=== PATIENT | female | born 1995 | race Caucasian/White ===

== ENCOUNTER → 2016-12-18 | Outpatient (REF) | payer OTHER ==
[~2016-12-18] MED LIST: ATIV1TAB10 PO; LAMI1TAB7 PO; RISP2TAB30 PO; RISP3TAB18 PO; VITACHTA PO; ZOLO25TA PO
[2016-12-18 12:19] LABS: ALBUMIN 4.1 GM/DL (3.2-5.2); ALBUMIN/GLOBULIN RATIO 1.41 (1.00-1.93); ALKALINE PHOSPHATASE 70 U/L (45-117); ALT/SGPT 16 U/L (12-78); ANION GAP 8 MEQ/L (8-16); AST/SGOT 13 U/L (15-37); BILIRUBIN,TOTAL 0.4 MG/DL (0.2-1.0); BLOOD UREA NITROGEN 12 MG/DL (7-18); CALCIUM LEVEL 8.7 MG/DL (8.5-10.1); CARBON DIOXIDE LEVEL 28 MEQ/L (21-32); CHLORIDE LEVEL 105 MEQ/L (98-107); CHOLESTEROL LEVEL 215 MG/DL (<200); CREATININE FOR GFR 0.76 MG/DL (0.55-1.02); GLOMERULAR FILTRATION RATE > 60.0 (>60); GLUCOSE, FASTING 90 MG/DL (70-105); SODIUM LEVEL 141 MEQ/L (136-145); TRIGLYCERIDES LEVEL 118 MG/DL (<150)
== END ==
LOC: M SFHCCLAY 08:50
PROVIDERS: ATTEND Family Medicine
DX: E78.2 Mixed hyperlipidemia (principal)

== ENCOUNTER → 2017-02-21 | Outpatient (REF) | payer MEDICAID, OTHER | LOC: M LABDRAWC 16:25 → M LABNEURO 16:25 | PROVIDERS: ATTEND Physician Assistant Medical | DX: Z51.81 Encounter for therapeutic drug level monitoring (principal); Z79.899 Other long term (current) drug therapy; R55 Syncope and collapse ==

== ENCOUNTER → 2017-05-02 | Outpatient (REF) | payer OTHER, MEDICAID ==
[~2017-05-02] MED LIST changes: -RISP2TAB30 PO; +RISP2TAB32 PO; -RISP3TAB18 PO; +RISP3TAB20 PO
== END ==
LOC: M SFHCCLAY 11:37
PROVIDERS: ATTEND Nurse Practitioner Family
DX: L08.9 Local infection of the skin and subcutaneous tissue, unspecified (principal)

== ENCOUNTER → 2017-11-04 | Outpatient (REF) | payer OTHER, MEDICAID ==
[2017-11-08 00:06] LABS: LAMOTRIGINE (LAMICTAL) 5.8 ug/mL (2.0-20.0)
== END ==
LOC: M LABDRAWC 16:33
DX: G40.909 Epilepsy, unspecified, not intractable, without status epilepticus (principal)

== ENCOUNTER → 2018-09-02 | Outpatient (REF) | payer OTHER, MEDICAID ==
[2018-09-05 10:22] LABS: LAMOTRIGINE (LAMICTAL) 5.2 ug/mL (2.0-20.0)
== END ==
LOC: M LABDRAWC 16:09
DX: G40.909 Epilepsy, unspecified, not intractable, without status epilepticus (principal)
CPT/HCPCS: 80175

== ENCOUNTER → 2018-12-31 | Outpatient (REF) | payer OTHER ==
[2018-12-31 18:59] LABS: ALBUMIN 4.2 GM/DL (3.2-5.2); ALT/SGPT 21 U/L (12-78); BILIRUBIN,TOTAL 0.2 MG/DL (0.2-1.0); BLOOD UREA NITROGEN 12 MG/DL (7-18); CARBON DIOXIDE LEVEL 29 MEQ/L (21-32); CHLORIDE LEVEL 104 MEQ/L (98-107); CHOLESTEROL LEVEL 203 MG/DL (<200); CHOLESTEROL RISK RATIO 4.142 (<5); GLOMERULAR FILTRATION RATE > 60.0 (>60); GLUCOSE, FASTING 108 MG/DL (70-100); HDL CHOLESTEROL 49 MG/DL (>40); LDL CHOLESTEROL 113 MG/DL (<100); NON-HDL-C 154 MG/DL; POTASSIUM SERUM 4.1 MEQ/L (3.5-5.1); SODIUM LEVEL 139 MEQ/L (136-145); TOTAL PROTEIN 7.3 GM/DL (6.4-8.2); TRIGLYCERIDES LEVEL 205 MG/DL (<150)
== END ==
LOC: M SFHCCLAY 15:22
PROVIDERS: ATTEND Nurse Practitioner Family
DX: E78.2 Mixed hyperlipidemia (principal)

== ENCOUNTER 2019-08-29 12:49 | Observation (INO) | payer MEDICAID, OTHER ==
[~2019-08-29] VITALS: Ht 160 cm; Wt 58.3 kg
[2019-08-29] MEDS ORDERED: RISP1TAB3 PO (13:10)
[2019-08-29] MEDS ORDERED: IBUP-1114 PO (13:10)
[2019-08-29] MEDS ORDERED: LAMO100T PO (13:10)
[2019-08-29] MEDS ORDERED: MULT1CHW26 PO (15:17)
--- NOTE | 2019-08-29 15:28 | ED PDOC ---
Provider Note Psychiatric consult Note Chief Complaint: "I don't know" History of Present Illness: The patient a 23-year-old woman with a long history of autism and intellectual impairment presents with reported auditory hallucinations, the patient is met with she is a very poor historian as it appears that she is autistic with a low ability to verbalize emotions. She presents with her mother's friend, whom is helping to take care of her as her mother is in the hospital in [place], who will be returning tomorrow. The patient has been very stressed of the last few days with her mother gone, reporting saying "that D person", by report from her collateral sources from an individual that had stressed the patient out. The patient appears to be highly limited with some mental status changes but does not appear to demonstrate any psychotic thought processes. The interview is fairly simplistic as she is unable to tolerate much of an interview as she is fairly limited. Her mother is her current guardian and she has been reportedly connected with [facility] services. She has had intellectual testing demonstrated to place her with an IQ of 66. Review of Psychiatric Systems: Affective: denies any significant history of depressive symptoms Anxiety: reports being anxious one alone Trauma: denies any specific criterion a trauma Psychosis: reports being scared of the above named person Personality Screen: unable to screen Past Psychiatric History: Current Diagnoses: autism Current Outpatient: [facility] with Dr. Pugh Current Medication regiment: reported to be on risperidone and Lamictal, she is noncompliant with risperidone the last few days Past Psychiatric Admissions: one in 2013 Suicide Attempts: denies Past Family Psychiatric History: Reportedly has a mother with bipolar disorder Social History and Family of Origin: Lives with her mother, her autistic uncle and is currently being cared for by her biological mother. She has graduated from [employer]. Addiction History: Denies any substance use Medical Problems: Seizure history Mental Status Exam: Vitals: reviewed General: Well dressed with good hygiene Speech: answers questions Thought processes: coherent Thought content: Future orientated Abstract reasoning, and computation: Intact Description of associations: Intact Description of abnormal or psychotic thoughts:Denies any suicidal or homicidal ideation. Denies any auditory or visual hallucinations. Does not appear to be responding to internal stimuli. Judgment: chronically limited Insight: chronically limited Orientation: Alert and orientated 3 Recent and remote memory: Intact Attention span and concentration: Intact Fund of knowledge: limited Mood: "okay" Affect: Euthymic with a full range Assessment: 23-year-old woman with a history of intellectual disability and autism presents with mental status changes that are likely due to combination of stress and very poor frustration tolerance. She is been off of her risperidone likely due to her inability to care for herself at chronic baseline. Her mother is not present to give her medications however she will be returning tomorrow. The patient is not eligible for inpatient psychiatry due to IQ she would not tolerate the inpatient environment well and can be resumed on her medications as she is not suicidal or homicidal, her reported auditory hallucinations appear to be internal monologues in a very primitive mind, she does not appear to be responding to internal stimuli which would be suggestive of a psychotic thought process. Risperidone can be helpful for anxious individuals especially those with autism and behavioral problems. She would be unable to consent to an inpatient psychiatric admission as she has a guardian. Diagnostics by DSMV: Autism moderate intellectual disability Recommendations/Rational Medications: recommend restarting risperidone at 0.25 mg BID to see how patient tolerates as well is melatonin 3 mg for sleep. Recommend admission to medicine for observation due to her altered mental status, if she tolerates her medications she can be released to her mother tomorrow, as she is not able to care for herself due to her significant intellectual disability. Disposition: does not meet involuntary criteria due to the lack of suicidal and homicidal ideation, her symptoms are likely due to stress in an individual that has very poor frustration tolerance, she has no history of suicide attempts and is well connected to outpatient treatment. Her outpatient provider may need to consider a fdc, as her mother's health is more frail and she may not be able to continue to provide for the patient for a long period of time. She does not meet voluntary criteria as she is primarily suffering from an intellectual disability and autism, which are not treated on inpatient mental health units and in fact are not allowed under [place] State law. Safety: low risk for suicide or homicide Other:please call psychiatry back if there any questions or concerns, or if any safety issues arise. AMBER Joe DO Aug 29, 2019 15:28
[2019-08-29 17:13] LABS: BASO # 0.1 10^3/uL (0.0-0.2); BASO % 0.7 % (0.0-1.0); EOS % 0.4 % (0.0-3.0); HEMATOCRIT 44.9 % (36.0-47.0); HEMOGLOBIN 15.2 g/dl (12.0-15.5); LYMPH # 1.3 10^3/uL (1.5-5.0); LYMPH % 18.3 % (24.0-44.0); MEAN CORPUSCULAR HEMOGLOBIN 31.7 pg (27.0-33.0); MEAN CORPUSCULAR HGB CONC 33.9 g/dl (32.0-36.5); MEAN CORPUSCULAR VOLUME 93.7 fl (80.0-96.0); MONO # 0.4 10^3/uL (0.0-0.8); MONO % 6.2 % (0.0-5.0); NEUTROPHILS # 5.2 10^3/uL (1.5-8.5); NEUTROPHILS % 74.1 % (36.0-66.0); PLATELET COUNT, AUTOMATED 239 10^3/uL (150-450); RED BLOOD COUNT 4.79 10^6/uL (4.00-5.40); WHITE BLOOD COUNT 7.1 10^3/uL (4.0-10.0)
--- NOTE | 2019-08-29 17:25 | ECGEPIP ---
[facility] - ED Test Date: 2019-08-29 Pat Name: DANYEL VALLES Department: Room: - Gender: Female Real Estate Executive Assistant: PACHE[place] : 1995 Requested By: Rolua Dumas Order Number: [id number] Reading MD: Roula Dumas Measurements Intervals [place] Rate: 100 P: 63 MO: 141 QRS: 66 QRSD: 77 T: 59 QT: 307 QTc: 396 Interpretive Statements SINUS TACHYCARDIA ABNORMAL RHYTHM ECG No prior Electronically Signed on 08-29-2019 17:25:03 EST by Roula Dumas
[2019-08-29 17:43] LABS: OSMOLALITY SERUM 291 MOSM/KG (275-295)
[2019-08-29 17:49] LABS: ALBUMIN 4.4 GM/DL (3.2-5.2); ALT/SGPT 23 U/L (12-78); BILIRUBIN,DIRECT < 0.1 MG/DL (0.0-0.2); BILIRUBIN,TOTAL 0.4 MG/DL (0.2-1.0); BLOOD UREA NITROGEN 10 MG/DL (7-18); CALCIUM LEVEL 9.3 MG/DL (8.5-10.1); CARBON DIOXIDE LEVEL 28 MEQ/L (21-32); CHLORIDE LEVEL 106 MEQ/L (98-107); CK-MB VALUE MASS < 1.0 NG/ML (<3.6); CPK CREATINE PHOSPHOKINASE 64 U/L (26-192); CREATININE FOR GFR 0.71 MG/DL (0.55-1.30); GLOMERULAR FILTRATION RATE > 60.0 (>60); GLUCOSE, FASTING 114 MG/DL (70-100); MB/CK RELATIVE INDEX 1.56 (< OR =4); POTASSIUM SERUM 3.9 MEQ/L (3.5-5.1); SALICYLATE LEVEL < 1.7 MG/DL (5.0-30.0); SODIUM LEVEL 140 MEQ/L (136-145); THYROID STIMULATING HORMONE 0.968 uIU/ML (0.358-3.740); TOTAL PROTEIN 7.8 GM/DL (6.4-8.2); TROPONIN I < 0.02 NG/ML (< 0.10)
[2019-08-29 17:50] LABS: ACETAMINOPHEN LEVEL < 2.0 UG/ML (10.0-30.0); ETHYL ALCOHOL (ETHANOL) < 0.003 % (0.000-0.010)
--- NOTE | 2019-08-29 19:10 | HPEPDOC ---
[facility] Medical History & Physical Date of Admission Aug 29, 2019 Date of Service: Aug 29, 2019 Attending Physician: MIRIAM REESE MD History and Physical CHIEF COMPLAINT: Poor support / Housing situation HISTORY OF PRESENT ILLNESS: Most of the history was obtained via ED provider in record review, because patient is a 23-year-old, with a past medical history significant for mild mental retardation, autistic, and nonspecified psychiatric disorder. According to the ER provider, patient is usually under the care of grandmother, home. Patient refers to as mom. Grandmother was admitted to [facility] for DKA with discharge pending for tomorrow. In her absence. Grandmother recruited help of her friend to take care of the patient and brother who also has a history of autism. It appears that the level of care became too much for grandmother's friend, so grandmothers friend recruited patients biological mother to help take care of both patient and her brother. Grandmothers friend brought patient to the ED because of increased paranoia, and paranoid delusions, which she believes is attributed to biological mother was not administrated patient's medications appropriately. Patient was evaluated by psychiatrist Everton levine, in the ED, PFS was also consulted. After evaluation by psychiatrist, it was deemed that an admission to inpatient mental health was an not appropriate for patient, and she'll benefit from an overnight stay with restarting of her medications, with discharge tomorrow to custody of grandmother. Laboratories have been unremarkable, patient was tachycardic on presentation, this is attributed to her nervousness. Will place patient on observation overnight. PAST MEDICAL HISTORY: Autistic, mild mental edition, nonspecified psychiatric disorder PAST SURGICAL HISTORY: None SOCIAL HISTORY: Grandmother takes care of patient, ALLERGIES: Please see below. REVIEW OF SYSTEMS: Unable to obtain due to patient's lack of understanding -She did however, denied chest pain, and breathing difficulty. She denied abdominal pain, she denied any recent trauma. HOME MEDICATIONS: Please see below. PE VITALS: See Below GENERAL APPEARANCE: Alert no acute distress. Eaten a cheeseburger. happy and pleasant SKIN: Warm, well perfused ENT: Palate intact, goldstein tympanic membrane no bulging, no erythema, Neck supple, no thyromegaly THORAX: Symmetrical. LUNGS: Clear to auscultation bilaterally. HEART: Normal S1, S2. No murmurs, no rubs, no gallops ABDOMEN: Soft. No masses. Bowel sounds are present. EXTREMITIES: Moves all extremities equally. No gross deformities. PULSES: 2+ upper and lower extremity . NEURO: muscle strength 5/5, PSY: No paranoid delusion, no thoughts of suicide, patient is concerned about medical procedure being performed on her, no increase agitation. LABORATORY DATA: See below. IMAGING: none MICROBIOLOGY: Please see below. ASSESSMENT: Patient is a 23-year-old, with a past medical history significant for mild mental retardation, autistic, and nonspecific psychiatric disorder.Presenting with complaint of Increased paranoia, and paranoid delusions by care substitute childcare administrator. She was evaluated by psychiatrist in the ED, PFS as been consulted. Patient does not meet criteria for admission to inpatient mental health unit. She'll be kept overnight for observation. PLAN: #Unsafe living conditions - Patient is without a primary caregiver - No excessive paranoia delusion, no thoughts of suicide, - Will restart Risperdal 0.25 mg twice a day, along with melatonin. And monitor patient overnight. As per psychiatry please refer to his note for full details -PFS consult # Mild Mental Retardation / Autism -Will continue home medication, - will restart Risperdal, provide melatonin as a sleep aid as needed DVT prophylaxis - Will continue with early ambulation Vital Signs Vital Signs Date Time Temp Pulse Resp B/P (MAP) Pulse Ox O2 Delivery O2 Flow Rate FiO2 08/29/19 16:06 08/29/19 12:50 97.7 112 18 96 Room Air Laboratory Data Labs 24H Laboratory Tests 2 08/29/19 16:21: Immature Granulocyte % (Auto) 0.3, Neutrophils (%) (Auto) 74.1H, Lymphocytes (%) (Auto) 18.3L, Monocytes (%) (Auto) 6.2H, Eosinophils (%) (Auto) 0.4, Basophils (%) (Auto) 0.7, Neutrophils # (Auto) 5.2, Lymphocytes # (Auto) 1.3L, Monocytes # (Auto) 0.4, Eosinophils # (Auto) 0.0, Basophils # (Auto) 0.1, Nucleated Red Blood Cells % (auto) 0.0, Anion Gap 6L, Glomerular Filtration Rate > 60.0, Osmolality 291, Calcium Level 9.3, Total Bilirubin 0.4, Direct Bilirubin < 0.1, Aspartate Amino Transf (AST/SGOT) 16, Alanine Aminotransferase (ALT/SGPT) 23, Alkaline Phosphatase 62, Ammonia 15, Total Creatine Kinase 64, Creatine Kinase MB < 1.0, Creatine Kinase MB Relative Index 1.56, Troponin I < 0.02, Total Protein 7.8, Albumin 4.4, Albumin/Globulin Ratio 1.29, Thyroid Stimulating Hormone (TSH) 0.968, Salicylates Level < 1.7L, Acetaminophen Level < 2.0L, Ethyl Alcohol Level < 0.003 CBC/BMP Laboratory Tests 08/29/19 16:21 Home Medications Scheduled Lamotrigine (Lamotrigine) 100 Mg Tablet, 100 MG PO BID Multivit-Minerals/Folic Acid (Adult Multi Gummies) 200 Mcg Tab.chew, 2 CHW PO DAILY Scheduled PRN Ibuprofen (Ibuprofen) 400 Mg Tablet, 400 MG PO BID PRN for CRAMPS Allergies Coded Allergies: No Known Allergies (Unverified , 09/10/14) GME ATTESTATION GME ATTESTATION My faculty preceptor for this patient encounter was physically present during the encounter and was fully available. All aspects of the patient interview, examination, medical decision making process, and medical care plan development were reviewed and approved by the faculty preceptor. The faculty preceptor is aware and concurs with the plan as stated in the body of this note and will attest to such by his/her cosignature. ATTENDING NOTE I, Miriam Reese, have independently examined this patient and performed my own physical exam, as well as reviewed the documentation and edited where necessary. I have discussed in detail with the resident / student the findings and plan of treatment as documented by the resident / student and edited their note. I agree with their findings and treatment plan and have edited their documentation. I will continue to follow the patient during this hospital stay. KATIE VERNON DO Aug 29, 2019 19:10 MIRIAM REESE MD Aug 29, 2019 20:48
[2019-08-29 20:10] VITALS: BP 143/80
[2019-08-29] MEDS: lamoTRIgine 100MG TAB PO SCH (20:16)
[2019-08-29] MEDS: ACETAMINOPHEN TAB 650MG DOSE (2X325MG) PO PRN (20:17)
[2019-08-29] MEDS ORDERED: RAMELTEON 8 MG TAB (ROZEREM) PO SCH (21:00)
[2019-08-29] MEDS: risperiDONE 1 MG/1 ML SOLN ORAL SYRINGE PO SCH (21:07)
[2019-08-30] MEDS: ACETAMINOPHEN TAB 650MG DOSE (2X325MG) PO PRN (04:19)
[2019-08-30 06:00] VITALS: BP 135/82
[2019-08-30] MEDS: lamoTRIgine 100MG TAB PO SCH (07:34)
[2019-08-30] MEDS: risperiDONE 1 MG/1 ML SOLN ORAL SYRINGE PO SCH (07:35)
[2019-08-30] MEDS ORDERED: RISP1SS PO (10:46)
[2019-08-30] MEDS ORDERED: RISP0.253 PO (11:37)
--- NOTE | 2019-08-30 11:45 | DS.PDOC ---
Discharge Summary General Date of Admission Aug 29, 2019 at 12:50 Date of Discharge 08/30/2019 Discharge Summary PROCEDURES PERFORMED DURING STAY: [None]. ADMITTING DIAGNOSES / DISCHARGE DIAGNOSES: Unsafe living situation - patient was alone and depends on manager of care that has been hospitalized Cognitive impairment Autism DVT prophylaxis COMPLICATIONS/CHIEF COMPLAINT: No pump mechanic / suspected hallucinations HISTORY OF PRESENT ILLNESS / HOSPITAL COURSE: Patient is a 22-year-old female with past medical history of mild mental retardation, autism, possible hallucination history who presented to the ER after her care provider was hospitalized. Currently patient has had some episodes of hallucinations and psychiatry has evaluated the patient and provided recommendations for her care. Her care provider was unable to take her back home and patient was subsequently placed on observation at [facility]. Patient has been continued with her home medications and Risperidone was added to her regimen. Patient has had an uneventful evening and will be discharged back to the care of Ms. Aurea Duff (Grandmother / Home health care social worker). DISCHARGE MEDICATIONS: Please see below. ALLERGIES: Please see below. PHYSICAL EXAMINATION ON DISCHARGE: Vitals (See below) General: Lying in bed, no acute distress, comfortable, Awake / Alert HEENT: NC, AT CVS: RRR, +S1S2 Lungs: Fair air entry b/l, -w/r/r Abdomen: Soft, ND, NT Extremities: - Edema, - Calf tenderness LABORATORY DATA: Please see below. ACTIVITY: [As tolerated]. DISCHARGE PLAN: Follow up with Psychiatry within 7 days Remain compliant with treatment plan and medications Return to the ER if you experience any problems DISPOSITION: Home DISCHARGE CONDITION: [Stable]. TIME SPENT ON DISCHARGE: 25 minutes Vital Signs/I&Os Vital Signs Date Time Temp Pulse Resp B/P (MAP) Pulse Ox O2 Delivery O2 Flow Rate FiO2 08/30/19 06:00 98.6 99 18 135/82 (99) 97 Room Air I&O- Last 24 Hours up to 6 AM 08/30/19 06:00 Intake Total 240 ml Output Total 100 ml Balance 140 ml Laboratory Data Labs 24H Laboratory Tests 2 08/29/19 16:21: Immature Granulocyte % (Auto) 0.3, Neutrophils (%) (Auto) 74.1H, Lymphocytes (%) (Auto) 18.3L, Monocytes (%) (Auto) 6.2H, Eosinophils (%) (Auto) 0.4, Basophils (%) (Auto) 0.7, Neutrophils # (Auto) 5.2, Lymphocytes # (Auto) 1.3L, Monocytes # (Auto) 0.4, Eosinophils # (Auto) 0.0, Basophils # (Auto) 0.1, Nucleated Red Blood Cells % (auto) 0.0, Anion Gap 6L, Glomerular Filtration Rate > 60.0, Osmolality 291, Calcium Level 9.3, Total Bilirubin 0.4, Direct Bilirubin < 0.1, Aspartate Amino Transf (AST/SGOT) 16, Alanine Aminotransferase (ALT/SGPT) 23, Alkaline Phosphatase 62, Ammonia 15, Total Creatine Kinase 64, Creatine Kinase MB < 1.0, Creatine Kinase MB Relative Index 1.56, Troponin I < 0.02, Total Protein 7.8, Albumin 4.4, Albumin/Globulin Ratio 1.29, Thyroid Stimulating Hormone (TSH) 0.968, Salicylates Level < 1.7L, Acetaminophen Level < 2.0L, Ethyl Alcohol Level < 0.003 CBC/BMP Laboratory Tests 08/29/19 16:21 Discharge Medications Scheduled Lamotrigine (Lamotrigine) 100 Mg Tablet, 100 MG PO BID, (Reported) Multivit-Minerals/Folic Acid (Adult Multi Gummies) 200 Mcg Tab.chew, 2 CHW PO DAILY, (Reported) Risperidone (Risperidone) 0.25 Mg Tablet, 1 TAB PO BID Scheduled PRN Ibuprofen (Ibuprofen) 400 Mg Tablet, 400 MG PO BID PRN for CRAMPS, (Reported) Allergies Coded Allergies: No Known Allergies (Unverified , 09/10/14) ABNER ABBASI MD Aug 30, 2019 11:45
[2019-08-30 14:00] VITALS: BP 144/87
[2019-08-31] MEDS ORDERED: RISP0.253 PO (15:01)
== END 2019-08-30 15:25 | disposition home or self-care (01) ==
LOC: M ED 12:49 → M ED INP 12:50 → M MS5PR 20:00
PROVIDERS: ADMIT Internal Medicine; ATTEND Internal Medicine
DX: Z60.2 Problems related to living alone (principal); G31.84 Mild cognitive impairment of uncertain or unknown etiology; F84.0 Autistic disorder; F70 Mild intellectual disabilities; R44.0 Auditory hallucinations; Z79.899 Other long term (current) drug therapy
CPT/HCPCS: 80048; 80076; 82140; 82550; 82553; 83930; 84443; 85025; 93005; 99285; G0480

== ENCOUNTER 2019-08-31 12:01 | Inpatient (IN) | payer MEDICAID, OTHER ==
[~2019-08-31] VITALS: Ht 160 cm; Wt 59.3 kg
[~2019-08-31 12:01] MED LIST changes: +IBUP-1114 PO; +LAMO100T PO; +MULT1CHW26 PO; +RISP0.253 PO; +RISP1SS PO; +RISP1TAB3 PO
[2019-08-31] MEDS ORDERED: MOM 30ML SUSPENSION UDC PO PRN (14:45)
[2019-08-31] MEDS ORDERED: ACETAMINOPHEN TAB 650MG DOSE (2X325MG) PO PRN (14:45)
[2019-08-31] MEDS ORDERED: MAALOX 30 ML SUSP *UDC PO PRN (14:45)
[2019-08-31] MEDS ORDERED: RISP0.253 PO (15:01)
[2019-08-31 16:39] LABS: HEMATOCRIT 44.1 % (36.0-47.0); HEMOGLOBIN 15.1 g/dl (12.0-15.5); MEAN CORPUSCULAR HEMOGLOBIN 32.5 pg (27.0-33.0); MEAN CORPUSCULAR HGB CONC 34.2 g/dl (32.0-36.5); PLATELET COUNT, AUTOMATED 245 10^3/uL (150-450); RED BLOOD COUNT 4.64 10^6/uL (4.00-5.40); WHITE BLOOD COUNT 7.1 10^3/uL (4.0-10.0)
[2019-08-31 16:47] LABS: HCG, SERUM QUALITATIVE NEGATIVE (NEGATIVE)
[2019-08-31 16:49] LABS: ACETAMINOPHEN LEVEL < 2.0 UG/ML (10.0-30.0); ALBUMIN 4.5 GM/DL (3.2-5.2); ALT/SGPT 23 U/L (12-78); BILIRUBIN,DIRECT 0.1 MG/DL (0.0-0.2); BILIRUBIN,TOTAL 0.4 MG/DL (0.2-1.0); BLOOD UREA NITROGEN 9 MG/DL (7-18); CALCIUM LEVEL 9.7 MG/DL (8.5-10.1); CARBON DIOXIDE LEVEL 26 MEQ/L (21-32); CHLORIDE LEVEL 108 MEQ/L (98-107); CREATININE FOR GFR 0.75 MG/DL (0.55-1.30); ETHYL ALCOHOL (ETHANOL) < 0.003 % (0.000-0.010); GLOMERULAR FILTRATION RATE > 60.0 (>60); GLUCOSE, FASTING 100 MG/DL (70-100); SALICYLATE LEVEL 1.7 MG/DL (5.0-30.0); SODIUM LEVEL 141 MEQ/L (136-145); THYROID STIMULATING HORMONE 0.551 uIU/ML (0.358-3.740)
[2019-08-31 19:00] VITALS: BP 136/87
[2019-08-31] MEDS ORDERED: OLANZapine ORAL DISINTEGRATING TAB 5MG PO ONE (20:45)
[2019-09-01 06:18] VITALS: BP 134/82
--- NOTE | 2019-09-01 11:45 | MHHPEPDOC ---
General Date Of Admission: Aug 31, 2019 Legal Status: 9.39 Chief Complaint "I'm ok". History of Present Illness HISTORY OF THE PRESENT ILLNESS: Patient is a 23 -year-old , female, with a history of austism, intellectual disability, leaning disabilities, and low functioning status who was brought to ED by [facility] for pt having hallucinations. Pt was in hospital over the weekend (08/29) and seen by Dr. Samuel who recommended social admit for inability to care for self to medical floor where she was discharged the following day. Pt is an outpatient of Dr. Pugh's who told [facility] staff that pt's grandmother (primary cable former) is currently in the hospital for medical illness and the person that is supposed to be caring for the pt while grandmother away is unable to properly care for her causing pt to decompensate and reportedly leave her home unsupervised and enter other people's property. In ED, pt in ED very focused on name "Yaneth" who she states is always with her and never leaves her side and "the D person" or Patel that is a voice of someone she doesn't like. She denies SI/HI in the ED. Per D/C data processing systems project planner, "Yaneth" and "the Patel person" are longstanding symptoms. Pt is a very poor historian and history gathered from chart record. Psychiatric Review of Systems Neris (4 or more days of): denies Psychosis: delusions ("Yaneth" and "the D person" that are long standing and not new) PTSD: denies Anxiety: stressor related anxiety Past Psychiatric History Current Diagnoses: autism Current Outpatient: [facility] with Dr. Pugh Current Medication regiment: reported to be on risperidone and Lamictal, she is noncompliant with risperidone per chart review 08/29/[address] Samuel Past Psychiatric Admissions: one in 2013 Suicide Attempts: denies Past Medical History Medical Problems denies Head Injury: No Seizures: Yes (history of) Hospitalizations: No Surgeries: No Family Medical/Psychiatric HX Medical Problems noncontributory Psychiatric Disorders: Yes (Reportedly has a mother with bipolar disorder, brother and maternal uncle are autistic) Addiction: No Suicide Attemps/Completions: No Addiction History denies Social History Childhood: born and raised in [place] by her maternal grandmother, 1 brother with autism too, good childhood Abuse/Trauma:denies Current Living Situation: currently lives with her maternal grandmother and autistic uncle in [place], grandmother has custody of pt but is currently in the hospital for medical problem Education: [employer] r[employer] Employment: diabled Social Support: grandmother, mother Legal: denies Marital: single, never , no kids Mental Status Examination General Appearance: well groomed, appears stated age, hospital scubs/clothing Demeanor: very figety, other (childlike) Eye Contact: average Activity: anxious, other (childlike) Behavior: cooperative, restless Speech: clear, reg/rate,rhythm,volume, non-spontaneous Mood: euthymic Mood "happy" Affect: full Thought Process: concrete Thought Content (Delusions): denies SI, HI, AVH (voice of "the D person" she doesn't like, "I hear Yaneth's voice I want to be with her she's my friend."), delusions ("Yaneth", " she's always with me and is my friend") Thought Content (Other): autistic Thought Content (Aggressive): none reported Perception (Hallucinations): none reported Perception (Other): none reported Cognition (Impairment of): memory, attention/concentration, ability to abstract Cognition(Intelligence Est.): MR Oriented: Awake, Alert, Oriented times three Insight: poor (very) Judgment: Poor (very) Psychosis: Abstract Thinking Diagnoses R/O Delusional d/o Intellectual disability - moderate/severe Autistic Spectrum D/O - low functioning A-FIB/CHADSVASC A-FIB History Current/History of A-Fib/PAF?: No Assessment Pt seen and states she came b/c she wanted to be with "Yaneth" b/c she hears her voice and "want to be with her". States she happy and "Yaneth is her friend." Denies SI/HI. Feels safe here. Per staff pt got into male pt's bed last night and had to be redirected out. Told pt that she can't enter other people's rooms and that the only room she can enter is hers and had her repeat that back to me. Pt appears to have very poor insight and judgment and is not able to care for herself, keep herself safe with supervision. Pt is also noncompliant on her medications which is apparently worsening her symptoms of delusions with AH that are long standing. Will increase risperidone to 1mg bid and vistaril 25mg q6hr prn anxiety, and continue lamictal 100mg daily. Pt is a very poor historian and history gathered from chart record. Initial Treatment Plan 1. Patient was admitted on a 9.39 status. 2. Complete history was obtained. 3. With patients permission, family will be contacted and database will be expanded. 4. Patients medication regimen will be reviewed and changed accordingly. 5. Patient will be provided with protected environment. 6. Patient will be treated with individual, group, and milieu therapies. 7. Patient will receive supportive psych-education. 8. Discharge planning will commence immediately. 9. Outpatient follow-up treatment will be strongly recommended. 10. The initial treatment plan will focus initially on: * Depression. * Risk for suicide. 11. increase risperidone to 1mg bid and start vistaril 25mg q6hr prn anxiety, and continue lamictal 100mg daily. ESTIMATED LENGTH OF STAY: 5-7 DAYS. TIME SPENT COUNSELING AND COORDINATING INITIAL CARE:60 minutes. Vital Signs Vital Signs Date Time Temp Pulse Resp B/P (MAP) Pulse Ox O2 Delivery O2 Flow Rate FiO2 09/01/19 06:18 98.0 111 14 134/82 (99) Room Air 08/31/19 19:00 98 Laboratory Data 24H Labs Laboratory Tests 2 08/31/19 16:03: Nucleated Red Blood Cells % (auto) 0.0, Anion Gap 7L, Glomerular Filtration Rate > 60.0, Calcium Level 9.7, Total Bilirubin 0.4, Direct Bilirubin 0.1, Aspartate Amino Transf (AST/SGOT) 16, Alanine Aminotransferase (ALT/SGPT) 23, Alkaline Phosphatase 64, Total Protein 8.0, Albumin 4.5, Albumin/Globulin Ratio 1.29, Thyroid Stimulating Hormone (TSH) 0.551, Human Chorionic Gonadotropin, Qual NEGATIVE, Salicylates Level 1.7L, Acetaminophen Level < 2.0L, Ethyl Alcohol Level < 0.003 CBC/BMP Laboratory Tests 08/31/19 16:03 Medications Scheduled Guanfacine HCl (Guanfacine HCl) 1 Mg Tablet, 1 MG PO BID for autism Multivit-Minerals/Folic Acid (Adult Multi Gummies) 200 Mcg Tab.chew, 2 CHW PO DAILY, (Reported) Paliperidone Palmitate (Invega Sustenna) 156 Mg/1 Ml Syringe, 156 MG IM QMONTH for delusional d/o Scheduled PRN Hydroxyzine HCl (Hydroxyzine HCl) 25 Mg Tablet, 25 MG PO Q6HP PRN for ANXIETY Ibuprofen (Ibuprofen) 400 Mg Tablet, 400 MG PO BID PRN for CRAMPS, (Reported) Allergies Coded Allergies: No Known Allergies (Unverified , 09/10/14) SIMON SHEIKH DO Sep 01, 2019 11:45
[2019-09-01] MEDS ORDERED: lamoTRIgine 100MG TAB PO ONE (12:00)
[2019-09-01] MEDS ORDERED: risperiDONE 1 MG TAB PO ONE (12:15)
--- NOTE | 2019-09-01 12:41 | HPEPDOC ---
General Date of Admission Aug 31, 2019 at 14:42 Date of Service: Sep 01, 2019 Chief Complaint The patient is a 23-year-old female admitted with a reason for visit of Unspecified Psychotic Disorder. Source: RN/, Old records (medical records), Other Exam Limitations: Mild cognitive slowing History of Present Illness This is a 22 years old female with past medical history of AUTISTIC mild mental slowing, nonspecific psychiatric disorder, was admitted to inpatient mental health unit with chief complaints of hallucinations which are auditory in cheryl ure. Patient is a poor historian. History was obtained from M.D. notes patient's previous admission notes and medical records. Home Medications Scheduled Lamotrigine (Lamotrigine) 100 Mg Tablet, 100 MG PO BID, (Reported) Multivit-Minerals/Folic Acid (Adult Multi Gummies) 200 Mcg Tab.chew, 2 CHW PO DAILY, (Reported) Risperidone (Risperidone) 0.25 Mg Tablet, 0.25 MG PO BID, (Reported) Scheduled PRN Ibuprofen (Ibuprofen) 400 Mg Tablet, 400 MG PO BID PRN for CRAMPS, (Reported) Allergies Coded Allergies: No Known Allergies (Unverified , 09/10/14) Past Medical History Medical History Autism. Mild mental retardation none specific psychiatric disorder Surgical History None Social History * Smoker: Denies Alcohol: Denies Drugs: denies A-FIB/CHADSVASC A-FIB History Current/History of A-Fib/PAF?: No Review of Systems Constitutional: Denies: Chills, Fever, Malaise, Night Sweats, Weakness, Fatigue, Weight Loss, Lethargy, Other Eyes: Denies: Pain, Vision change, Conjunctivae inflammation, Eyelid inflammation, Redness, Other ENT: Denies: Head Aches, Ear Pain, Dysphagia, Sinus Congestion, Post Nasal Drip, Sore Throat, Epistaxis, Other Symptoms Skin: Denies: Rash, Lesions, Jaundice, Bruising, Itching, Dry, Breakdown, Nail Changes, Other Pulmonary: Denies: Dyspnea, Cough, Pleuritic Chest Pain, Other Symptoms Cardiovascular: Denies: Chest Pain, Palpitations, Orthopnea, Paroxysmal Noc. Dyspnea, Edema, Lt Headedness, Other Symptoms Gastrointestinal: Denies: Nausea, Vomiting, Abdominal Pain, Diarrhea, Constipation, Melena, Hematochezia, Other Symptoms Genitourinary: Denies: Dysuria, Frequency, Incontinence, Hematuria, Retention, Other Symptoms Musculoskeletal: Denies: Neck Pain, Back Pain, Shoulder Pain, Arm Pain, Hand Pain, Leg Pain, Foot Pain, Joint Pain, Muscle Pain, Spasms, Other Symptoms Neurological: Denies: Weakness, Numbness, Incoordination, Change in speech, Confusion, Seizures, Other Symptoms Psych: Reports: Other Psych Physical Examination General Exam: Positive: Alert Eye Exam: Positive: PERRLA, Conjunctiva & lids normal ENT Exam: Positive: Atraumatic, Mucous membr. moist/pink Neck Exam: Positive: Supple Chest Exam: Positive: Clear to auscultation, Normal air movement Heart Exam: Positive: Rate Normal, Normal S1, Normal S2 Abdomen Exam: Positive: Normal bowel sounds Extremity Exam: Positive: Normal pulses Skin Exam: Positive: Nl turgor and temperature Neuro Exam: Positive: Strength at 5/5 X4 ext, Sensation Intact Vital Signs Vital Signs Date Time Temp Pulse Resp B/P (MAP) Pulse Ox O2 Delivery O2 Flow Rate FiO2 09/01/19 06:18 98.0 111 14 134/82 (99) Room Air 08/31/19 19:00 98 Laboratory Data Labs 24H Laboratory Tests 2 08/31/19 16:03: Nucleated Red Blood Cells % (auto) 0.0, Anion Gap 7L, Glomerular Filtration Rate > 60.0, Calcium Level 9.7, Total Bilirubin 0.4, Direct Bilirubin 0.1, Aspartate Amino Transf (AST/SGOT) 16, Alanine Aminotransferase (ALT/SGPT) 23, Alkaline Phosphatase 64, Total Protein 8.0, Albumin 4.5, Albumin/Globulin Ratio 1.29, Thyroid Stimulating Hormone (TSH) 0.551, Human Chorionic Gonadotropin, Qual NEGATIVE, Salicylates Level 1.7L, Acetaminophen Level < 2.0L, Ethyl Alcohol Level < 0.003 CBC/BMP Laboratory Tests 08/31/19 16:03 Problems (1) Hallucinations Status: Acute Problem Text: Patient was admitted to inpatient mental health unit Seen by Dr. Leggett today Patient will participate in individual and group therapies Medication and discharge planning as per Dr. Leggett (2) Living accommodation issues Status: Acute Problem Text: Patient lives with her grandmother and the decision support analyst Pt's grandmother is admitted in the hospital and decision support analyst is unable to take care of her alone. Patient admitted to inpatient mental health unit for safe accommodation No medical workup needed at this time Plan / VTE VTE Prophylaxis Ordered?: No VTE Exclusion Mechanical Proph: Low Risk for VTE VTE Exclusion Pharmacological: At Low Risk for VTE ANNE HUNT MD Sep 01, 2019 12:41
[2019-09-01] MEDS: hydrOXYzine 25 MG TAB PO PRN (14:56)
[2019-09-01] MEDS: OLANZapine ORAL DISINTEGRATING TAB 5MG PO PRN ×2 (14:57→23:10)
[2019-09-01 16:09] VITALS: BP 127/78
[2019-09-01] MEDS ORDERED: risperiDONE 0.5 MG TAB PO SCH (21:00)
[2019-09-01] MEDS: risperiDONE 1 MG TAB PO SCH (21:13)
--- NOTE | 2019-09-01 22:32 | HPE ---
DATE OF ADMISSION: 08/31/2019 DATE OF SERVICE: 09/01/2019 HISTORY OF PRESENTING ILLNESS: This is a 23-year-old female admitted to the inpatient mental health unit for psychotic disorder. Hospitalist was asked to do a medical evaluation. Patient does have a prior history of autistic disorder, nonspecified psychotic disorder, mild mental retardation, usually lives at home with her mother and grandmother; she refers to as mom. Has no complaints of changes in weight, fever, chills, unusual rash, chest pain, pressure, tightness, shortness of breath, lightheadedness, dizziness, nausea, vomiting, diarrhea, abdominal pain, constipation. Denies dysuria, urgency, frequency, upper, lower extremity weakness, headache, changes in vision, rhinorrhea, cough, ear pain or discharge. Admitted to inpatient mental health unit for unspecified psychotic disorder. PAST MEDICAL HISTORY: Autism. Unspecified psychotic disorder. Mild mental retardation. PAST SURGICAL HISTORY: None. REVIEW OF SYSTEMS: Could not be obtained as the patient is autistic. SOCIAL HISTORY: Grandmother takes care of the patient, refers to her as mother. ALLERGIES: No known drug allergies. HOSPITAL MEDICATIONS: - lamotrigine - Risperdal - Zyprexa - Atarax - acetaminophen - Milk of Magnesia - Mylanta FAMILY HISTORY: Could not be obtained. PHYSICAL EXAM: Temperature 98, pulse 84, respiratory rate 18, blood pressure 127/78, 98% on room air. Generally, awake, alert, oriented to herself. She is not appropriate with her exam. Normocephalic, atraumatic. Extraocular muscles are intact. No cervical lymphadenopathy/thyromegaly. Lungs are clear to auscultation. No wheezing, rales or rhonchi. Heart: S1, S2, sinus rhythm. Abdomen is soft, nontender, nondistended. Extremities: No pitting edema. LABORATORY DATA: 08/31/2019 CBC: White count 7, hemoglobin 15, hematocrit 44, platelet count 245. Sodium 141, potassium 4, chloride 108, bicarbonate 26, BUN 9, creatinine 0.75, glucose 100, total bilirubin 0.4, direct bilirubin 0.1, AST 16, ALT 23, alkaline phosphatase 64, albumin 4.5, TSH 0.5. HCG negative. IMAGING STUDIES: None. ASSESSMENT AND PLAN: A 23-year-old with mental retardation, mild autism, unspecified psychotic disorder, admitted to inpatient psychiatric unit for unspecified psychotic disorder. IMPRESSION: 1. Unspecified psychotic disorder, managed by psychiatrist. 2. Mild autism, complicating care. 3. History of mental retardation, cared for by her grandmother whom she refers to as mother. No acute medical issues. ABELINOD
[2019-09-01] MEDS ORDERED: QUEtiapine FUMARATE 50 MG TAB PO ONE (23:30)
[2019-09-02 06:18] VITALS: BP 130/84
[2019-09-02] MEDS: risperiDONE 1 MG TAB PO SCH (08:44)
[2019-09-02] MEDS ORDERED: lamoTRIgine 100MG TAB PO SCH (09:00)
[2019-09-02] MEDS ORDERED: guanFACINE 1 MG TAB PO ONE (09:15)
--- NOTE | 2019-09-02 09:15 | MHIPNPDOC ---
[facility] Progress Note Progress Note DATE OF SERVICE: 09/02/19 HISTORY:Patient is a 23 -year-old , female, with a history of austism, intellectual disability, leaning disabilities, and low functioning status who was brought to ED by [facility] for pt having hallucinations. Pt was in hospital over the weekend (08/29) and seen by Dr. Samuel who recommended social admit for inability to care for self to medical floor where she was discharged the following day. Pt is an outpatient of Dr. Pugh's who told [facility] staff that pt's grandmother (primary psychological examiner) is currently in the hospital for medical illness and the person that is supposed to be caring for the pt while grandmother away is unable to properly care for her causing pt to decompensate and reportedly leave her home unsupervised and enter other people's property. In ED, pt in ED very focused on name "Yaneth" who she states is always with her and never leaves her side and "the D person" or Patel that is a voice of someone she doesn't like. She denies SI/HI in the ED. Per D/C network planner, "Yaneth" and "the Patel person" are longstanding symptoms. Pt seen and states she came b/c she wanted to be with "Yaneth" b/c she hears her voice and "want to be with her". States she happy and "Yaneth is her friend." Denies SI/HI. Feels safe here. Per staff pt got into male pt's bed last night and had to be redirected out. Told pt that she can't enter other people's rooms and that the only room she can enter is hers and had her repeat that back to me. Pt appears to have very poor insight and judgment and is not able to care for herself, keep herself safe with supervision. Pt is also noncompliant on her medications which is apparently worsening her symptoms of delusions with AH that are long standing. Will increase risperidone to 1mg bid and vistaril 25mg q6hr prn anxiety, and continue lamictal 100mg daily. Pt is a very poor historian and history gathered from chart record. VITAL SIGNS: See below. NEW TEST RESULTS: See below. CURRENT MEDICATIONS: See below. MENTAL STATUS EXAMINATION: General Appearance: well groomed, appears stated age, hospital scubs/clothing Demeanor: very figety, other (childlike) Eye Contact: average Activity: anxious, other (childlike) Behavior: cooperative, restless Speech: clear, reg/rate,rhythm,volume, non-spontaneous Mood: euthymic Mood "happy" Affect: full Thought Process: concrete Thought Content (Delusions): denies SI, HI, AVH (voice of "the D person" she doesn't like, "I hear Yaneth's voice I want to be with her she's my friend."), delusions ("Yaneth", " she's always with me and is my friend") Thought Content (Other): autistic Thought Content (Aggressive): none reported Perception (Hallucinations): none reported Perception (Other): none reported Cognition (Impairment of): memory, attention/concentration, ability to abstract Cognition(Intelligence Est.): MR Oriented: Awake, Alert, Oriented times three Insight: poor (very) Judgment: Poor (very) Psychosis: Abstract Thinking DIAGNOSES: R/O Delusional d/o Intellectual disability - moderate/severe Autistic Spectrum D/O - low functioning ASSESSMENT:Pt seen in her room and states she's "ok." Pt's memory is very poor and unable to remember who I am when I asked her, called me "Yaz." Asked pt if she remembered to one rule I told her she must follow here I told her yesterday as she continues to have to be redirected out of other pt's rooms and stated "I can only be in the rooms" and reminded her "this room, your room" specifically. Pt then asked me to tell "Yaneth" the rule. Pt requires constant redirection out of peoples rooms by staff. Pt is very low functioning. Per staff, pt discussing person "Yoli" who is real and works in an ice cream shop in [place]. Pt has very poor boundaries. MANAGEMENT PLAN: D/c risperidone and start invega 3mg qhs for pt to receive invega sustenna for noncompliance. D/c lamictal as due to life threatening side effects (SJS) due to noncompliance is too much of a risk for pt to be on considering her history of noncompliance. Start Guanfacine 1mg bid for Autism invega 3mg qhs Guanfacine 1mg bid vistaril 25mg q6hr prn anxiety TIME SPENT: 30 minutes. Vital Signs Vital Signs Date Time Temp Pulse Resp B/P (MAP) Pulse Ox O2 Delivery O2 Flow Rate FiO2 09/02/19 06:18 99.4 99 16 130/84 (99) 09/01/19 06:18 Room Air 08/31/19 19:00 98 Current Medications Current Medications Medications (Trade) Dose Ordered Sig/Aliya Route PRN Reason Start Time Stop Time Status Last Admin Dose Admin Acetaminophen (Tylenol Tab) 650 mg Q6HP PRN PO HEADACHE or DISCOMFORT 08/31/19 14:45 Al Hydrox/Mg Hydrox/Simethicone (Mylanta) 30 ml Q4HP PRN PO HEARTBURN/INDIGESTION 08/31/19 14:45 Home Med (Med Rec Complete!) ASDIRECTED XX 08/31/19 15:15 08/31/19 15:03 DC Hydroxyzine HCl (Atarax) 25 mg Q6HP PRN PO ANXIETY 09/01/19 11:45 09/01/19 14:56 Lamotrigine (LaMICtal) 100 mg DAILY PO 09/02/19 09:00 09/02/19 08:44 Magnesium Hydroxide (Milk Of Magnesia) 30 ml DAILYPRN PRN PO CONSTIPATION 08/31/19 14:45 Olanzapine (ZyPREXA ZYDIS) 5 mg Q4HP PRN PO ANXIETY/AGITATION 09/01/19 15:00 09/01/19 23:10 Risperidone (RisperDAL) 0.5 mg QHS PO 09/01/19 21:00 Cancel Risperidone (RisperDAL) 1 mg BID PO 09/01/19 21:00 09/02/19 08:44 Allergies Coded Allergies: No Known Allergies (Unverified , 09/10/14) SIMON SHEIKH DO Sep 02, 2019 9:15 am
[2019-09-02] MEDS: guanFACINE 1 MG TAB PO SCH ×2 (10:12→20:44)
[2019-09-02] MEDS: OLANZapine ORAL DISINTEGRATING TAB 5MG PO PRN (11:03)
[2019-09-02] MEDS: hydrOXYzine 25 MG TAB PO PRN ×2 (11:52→20:40)
[2019-09-02 16:23] VITALS: BP 105/59
[2019-09-02] MEDS: PALIPERIDONE 3 MG ER TAB (INVEGA) PO SCH (20:39)
[2019-09-03 06:10] VITALS: BP 116/70
--- NOTE | 2019-09-03 08:48 | MHIPNPDOC ---
[facility] Progress Note Progress Note DATE OF SERVICE: 09/03/19 HISTORY: Patient is a 23 -year-old , female, with a history of austism, intellectual disability, leaning disabilities, and low functioning status who was brought to ED by [facility] for pt having hallucinations. Pt was in hospital over the weekend (08/29) and seen by Dr. Samuel who recommended social admit for inability to care for self to medical floor where she was discharged the following day. Pt is an outpatient of Dr. Pugh's who told [facility] staff that pt's grandmother (primary motel keeper) is currently in the hospital for medical illness and the person that is supposed to be caring for the pt while grandmother away is unable to properly care for her causing pt to decompensate and reportedly leave her home unsupervised and enter other people's property. In ED, pt in ED very focused on name "Yaneth" who she states is always with her and never leaves her side and "the D person" or Patel that is a voice of someone she doesn't like. She denies SI/HI in the ED. Per D/C urban planner, "Yaneth" and "the Patel person" are longstanding symptoms. Pt seen and states she came b/c she wanted to be with "Yaneth" b/c she hears her voice and "want to be with her". States she happy and "Yaneth is her friend." Denies SI/HI. Feels safe here. Per staff pt got into male pt's bed last night and had to be redirected out. Told pt that she can't enter other people's rooms and that the only room she can enter is hers and had her repeat that back to me. Pt appears to have very poor insight and judgment and is not able to care for herself, keep herself safe with supervision. Pt is also noncompliant on her medications which is apparently worsening her symptoms of delusions with AH that are long standing. Will increase risperidone to 1mg bid and vistaril 25mg q6hr prn anxiety, and continue lamictal 100mg daily. Pt is a very poor historian and history gathered from chart record. VITAL SIGNS: See below. NEW TEST RESULTS: See below. CURRENT MEDICATIONS: See below. MENTAL STATUS EXAMINATION: Roughly no change General Appearance: well groomed, appears stated age, hospital scrubs/clothing Demeanor: very figety, other (childlike) Eye Contact: average Activity: anxious, other (childlike) Behavior: cooperative, restless Speech: clear, reg/rate,rhythm,volume, non-spontaneous Mood: euthymic Mood "ok" Affect: full Thought Process: concrete Thought Content (Delusions): denies SI, HI, AVH (voice of "the D person" she doesn't like, "I hear Yaneth's voice I want to be with her she's my friend."), delusions ("Yaneth", " she's always with me and is my friend") Thought Content (Other): autistic Thought Content (Aggressive): none reported Perception (Hallucinations): none reported Perception (Other): none reported Cognition (Impairment of): memory, attention/concentration, ability to abstract Cognition(Intelligence Est.): MR Oriented: Awake, Alert, Oriented times three Insight: poor (very) Judgment: Poor (very) Psychosis: Abstract Thinking DIAGNOSES: R/O Delusional d/o Intellectual disability - moderate/severe Autistic Spectrum D/O - low functioning ASSESSMENT:Pt seen in her room with 1:1 sitter present after she was put on a sitter yesterday due to continuous wandering into other pt's rooms despite repeated redirection and was found on a male pt bed kneeling over him. Pt states she looking for "Yaneth." She states today she's "ok." Pt's memory remains very poor (most likely that is her baseline) and is still unable to remember who I am when I asked her. She is remaining in her room and walking the milieu periodically with her sitter no longer wandering into other pt's rooms. Pt is still preoccupied with "Yaneth" and where "Yaneth is" and "make sure you tell Yaneth, "I want to be with Yaenth." Pt is very low functioning. Pt has very poor boundaries. She appears to be tolerating invega and guanfacine started yesterday and appears more calm overall. MANAGEMENT PLAN: D/c risperidone and start invega 3mg qhs for pt to receive invega sustenna for noncompliance. D/c lamictal as due to life threatening side effects (SJS) due to noncompliance is too much of a risk for pt to be on considering her history of noncompliance. Start Guanfacine 1mg bid for Autism invega 3mg qhs Guanfacine 1mg bid vistaril 25mg q6hr prn anxiety TIME SPENT: 30 minutes. Vital Signs Vital Signs Date Time Temp Pulse Resp B/P (MAP) Pulse Ox O2 Delivery O2 Flow Rate FiO2 09/03/19 06:10 97.8 113 14 116/70 (85) 09/01/19 06:18 Room Air 08/31/19 19:00 98 Current Medications Current Medications Medications (Trade) Dose Ordered Sig/Aliya Route PRN Reason Start Time Stop Time Status Last Admin Dose Admin Acetaminophen (Tylenol Tab) 650 mg Q6HP PRN PO HEADACHE or DISCOMFORT 08/31/19 14:45 Al Hydrox/Mg Hydrox/Simethicone (Mylanta) 30 ml Q4HP PRN PO HEARTBURN/INDIGESTION 08/31/19 14:45 Guanfacine HCl (Tenex) 1 mg BID PO 09/02/19 09:00 09/02/19 20:44 Home Med (Med Rec Complete!) ASDIRECTED XX 08/31/19 15:15 08/31/19 15:03 DC Hydroxyzine HCl (Atarax) 25 mg Q6HP PRN PO ANXIETY 09/01/19 11:45 09/02/19 20:40 Lamotrigine (LaMICtal) 100 mg DAILY PO 09/02/19 09:00 09/02/19 09:17 DC 09/02/19 08:44 Magnesium Hydroxide (Milk Of Magnesia) 30 ml DAILYPRN PRN PO CONSTIPATION 08/31/19 14:45 Olanzapine (ZyPREXA ZYDIS) 5 mg Q4HP PRN PO ANXIETY/AGITATION 09/01/19 15:00 09/02/19 11:03 Paliperidone (Invega) 3 mg QHS PO 09/02/19 21:00 09/02/19 20:39 Risperidone (RisperDAL) 0.5 mg QHS PO 09/01/19 21:00 Cancel Risperidone (RisperDAL) 1 mg BID PO 09/01/19 21:00 09/02/19 09:17 DC 09/02/19 08:44 Allergies Coded Allergies: No Known Allergies (Unverified , 09/10/14) SIMON SHEIKH DO Sep 03, 2019 8:48 am
[2019-09-03] MEDS: guanFACINE 1 MG TAB PO SCH ×2 (09:34→20:46)
[2019-09-03 15:28] VITALS: BP 128/60
[2019-09-03] MEDS: hydrOXYzine 25 MG TAB PO PRN (20:47)
[2019-09-03] MEDS: PALIPERIDONE 3 MG ER TAB (INVEGA) PO SCH (20:47)
[2019-09-04 06:52] VITALS: BP 124/67
[2019-09-04] MEDS: guanFACINE 1 MG TAB PO SCH ×2 (08:53→22:01)
--- NOTE | 2019-09-04 10:19 | MHIPNPDOC ---
[facility] Progress Note Progress Note DATE OF SERVICE: 09/04/19 HISTORY: Patient is a 23 -year-old , female, with a history of austism, intellectual disability, leaning disabilities, and low functioning status who was brought to ED by [facility] for pt having hallucinations. Pt was in hospital over the weekend (08/29) and seen by Dr. Samuel who recommended social admit for inability to care for self to medical floor where she was discharged the following day. Pt is an outpatient of Dr. Pugh's who told [facility] staff that pt's grandmother (primary help desk analyst) is currently in the hospital for medical illness and the person that is supposed to be caring for the pt while grandmother away is unable to properly care for her causing pt to decompensate and reportedly leave her home unsupervised and enter other people's property. In ED, pt in ED very focused on name "Yaneth" who she states is always with her and never leaves her side and "the D person" or Patel that is a voice of someone she doesn't like. She denies SI/HI in the ED. Per D/C business continuity planner, "Yaneth" and "the Patel person" are longstanding symptoms. Pt seen and states she came b/c she wanted to be with "Yaneth" b/c she hears her voice and "want to be with her". States she happy and "Yaneth is her friend." Denies SI/HI. Feels safe here. Per staff pt got into male pt's bed last night and had to be redirected out. Told pt that she can't enter other people's rooms and that the only room she can enter is hers and had her repeat that back to me. Pt appears to have very poor insight and judgment and is not able to care for herself, keep herself safe with supervision. Pt is also noncompliant on her medications which is apparently worsening her symptoms of delusions with AH that are long standing. Will increase risperidone to 1mg bid and vistaril 25mg q6hr prn anxiety, and continue lamictal 100mg daily. Pt is a very poor historian and history gathered from chart record. VITAL SIGNS: See below. NEW TEST RESULTS: See below. CURRENT MEDICATIONS: See below. MENTAL STATUS EXAMINATION: Roughly no change General Appearance: well groomed, appears stated age, hospital scrubs/clothing Demeanor: very figety, other (childlike) Eye Contact: average Activity: anxious, other (childlike) Behavior: cooperative, restless Speech: clear, reg/rate,rhythm,volume, non-spontaneous Mood: euthymic Mood "ok" Affect: full Thought Process: concrete Thought Content (Delusions): denies SI, HI, AVH (voice of "the D person" she doesn't like, "I hear Yaneth's voice I want to be with her she's my friend."), delusions ("Yaneth", " she's always with me and is my friend") Thought Content (Other): autistic Thought Content (Aggressive): none reported Perception (Hallucinations): none reported Perception (Other): none reported Cognition (Impairment of): memory, attention/concentration, ability to abstract Cognition(Intelligence Est.): MR Oriented: Awake, Alert, Oriented times three Insight: poor (very) Judgment: Poor (very) Psychosis: Abstract Thinking DIAGNOSES: R/O Delusional d/o Intellectual disability - moderate/severe Autistic Spectrum D/O - low functioning ASSESSMENT:Pt seen in her room with 1:1 sitter and is no longer wandering into pt's rooms. Pt continues to look for "Yaneth" who she describes as her "imaginary friend." Pt is very childlike, imaginary friends are very common and not treated during childhood, and since she is very childlike due to Autism most likely it's something not needing to be treated and pt tells staff she knows "Yaneth" isn't really but having a friend like "Yaneth" comforts her. She states today she's "ok." Pt's memory remains very poor (most likely that is her baseline) and is still unable to remember who I am when I asked her. She is remaining in her room and walking the milieu periodically with her sitter no longer wandering into other pt's rooms. Pt is still preoccupied with "Yaneth" and where "Yaneth is" and "make sure you tell Yaneth, "I want to be with Yaneth." Pt is very low functioning. Pt has very poor boundaries. She appears to be tolerating invega and guanfacine started yesterday and appears more calm overall. Will give invega sustenna 156mg im today as appears to be tolerating oral invega well and appears beneficial to allow pt to be more calm and redirectable. She is agreeable with taking invega sustenna IM after discussed with her. MANAGEMENT PLAN: give invega sustenna, d/c oral invega after IM given. invega sustenna 156mg IM x1 Guanfacine 1mg bid vistaril 25mg q6hr prn anxiety TIME SPENT: 30 minutes. Vital Signs Vital Signs Date Time Temp Pulse Resp B/P (MAP) Pulse Ox O2 Delivery O2 Flow Rate FiO2 09/04/19 08:53 122/70 09/04/19 06:52 97.7 106 18 09/01/19 06:18 Room Air 08/31/19 19:00 98 Current Medications Current Medications Medications (Trade) Dose Ordered Sig/Aliya Route PRN Reason Start Time Stop Time Status Last Admin Dose Admin Acetaminophen (Tylenol Tab) 650 mg Q6HP PRN PO HEADACHE or DISCOMFORT 08/31/19 14:45 Al Hydrox/Mg Hydrox/Simethicone (Mylanta) 30 ml Q4HP PRN PO HEARTBURN/INDIGESTION 08/31/19 14:45 Guanfacine HCl (Tenex) 1 mg BID PO 09/02/19 09:00 09/04/19 08:53 Home Med (Med Rec Complete!) ASDIRECTED XX 08/31/19 15:15 08/31/19 15:03 DC Hydroxyzine HCl (Atarax) 25 mg Q6HP PRN PO ANXIETY 09/01/19 11:45 09/03/19 20:47 Lamotrigine (LaMICtal) 100 mg DAILY PO 09/02/19 09:00 09/02/19 09:17 DC 09/02/19 08:44 Magnesium Hydroxide (Milk Of Magnesia) 30 ml DAILYPRN PRN PO CONSTIPATION 08/31/19 14:45 Olanzapine (ZyPREXA ZYDIS) 5 mg Q4HP PRN PO ANXIETY/AGITATION 09/01/19 15:00 09/02/19 11:03 Paliperidone (Invega) 3 mg QHS PO 09/02/19 21:00 09/03/19 20:47 Risperidone (RisperDAL) 0.5 mg QHS PO 09/01/19 21:00 Cancel Risperidone (RisperDAL) 1 mg BID PO 09/01/19 21:00 09/02/19 09:17 DC 09/02/19 08:44 Allergies Coded Allergies: No Known Allergies (Unverified , 09/10/14) SIMON SHEIKH DO Sep 04, 2019 10:19 am
[2019-09-04] MEDS ORDERED: PALIPERIDONE PALMITATE 156MG/1ML INJ(INVEGA)(J2426 PER 1MG)(INFUS OUTPT) IM ONE ×2 (10:30→11:45)
[2019-09-04] MEDS ORDERED: PALIPERIDONE PALMITATE 156MG/1ML INJ(INVEGA)(J2426)(FREE PSY INPT ONLY) IM ONE (11:45)
[2019-09-04 16:13] VITALS: BP 122/66
[2019-09-05 05:54] VITALS: BP 134/80
[2019-09-05] MEDS: guanFACINE 1 MG TAB PO SCH ×2 (08:09→20:05)
[2019-09-05 16:18] VITALS: BP 105/62
[2019-09-06 05:55] VITALS: BP 135/65
[2019-09-06] MEDS: guanFACINE 1 MG TAB PO SCH ×2 (09:05→21:00)
[2019-09-06 16:05] VITALS: BP 121/70
[2019-09-07 06:16] VITALS: BP 122/75
[2019-09-07 08:36] VITALS: BP 114/64
[2019-09-07] MEDS: guanFACINE 1 MG TAB PO SCH (08:36)
[2019-09-07] MEDS ORDERED: GUAN1TA PO (08:58)
[2019-09-07] MEDS ORDERED: HYDR-3363 PO (08:58)
[2019-09-07] MEDS ORDERED: INVE156I IM (08:58)
--- NOTE | 2019-09-07 08:59 | MHDSPDOC ---
[facility] Discharge Summary Discharge Summary DATE OF ADMISSION: Aug 31, 2019 at 2:42 pm DATE OF DISCHARGE: Sep 07, 2019 DISCHARGE DIAGNOSES: R/O Delusional d/o Intellectual disability - moderate/severe Autistic Spectrum D/O - low functioning. REASON FOR ADMISSION: Patient is a 23 -year-old , female, with a history of austism, intellectual disability, leaning disabilities, and low functioning status who was brought to ED by [facility] for pt having hallucinations. Pt was in hospital over the weekend (08/29) and seen by Dr. Samuel who recommended social admit for inability to care for self to medical floor where she was discharged the following day. Pt is an outpatient of Dr. Pugh's who told [facility] staff that pt's grandmother (primary weir fisherman) is currently in the hospital for medical illness and the person that is supposed to be caring for the pt while grandmother away is unable to properly care for her causing pt to decompensate and reportedly leave her home unsupervised and enter other people's property. In ED, pt in ED very focused on name "Yaneth" who she states is always with her and never leaves her side and "the D person" or Patel that is a voice of someone she doesn't like. She denies SI/HI in the ED. Per D/C facility planner, "Yaneth" and "the Patel person" are longstanding symptoms. Pt seen and states she came b/c she wanted to be with "Yaneth" b/c she hears her voice and "want to be with her". States she happy and "Yaneth is her friend." Denies SI/HI. Feels safe here. Per staff pt got into male pt's bed last night and had to be redirected out. Told pt that she can't enter other people's rooms and that the only room she can enter is hers and had her repeat that back to me. Pt appears to have very poor insight and judgment and is not able to care for herself, keep herself safe with supervision. Pt is also noncompliant on her medications which is apparently worsening her symptoms of delusions with AH that are long standing. Will increase risperidone to 1mg bid and vistaril 25mg q6hr prn anxiety, and continue lamictal 100mg daily. Pt is a very poor historian and history gathered from chart record. CONSULTANTS INVOLVED: none TREATMENT AND PROGRESS ON THE UNIT :Pt was admitted to [facility], seen for psychiatric assessment and her outpatient risperidone and lamictal were discontinued and she was started on guanfacine 1mg bid and invega 3mg qhs for delusions which she tolerated well and it appeared beneficial so she was given invega sustenna 156mg im x1 for med compliance that she tolerated well and appeared beneficial so her oral invega was discontinued. She was provided vistaril 25mg q6hr prn anxiety and trazodone 50mg qhs prn insomnia. Pt found her medications beneficial and tolerated them well. She attended groups daily during her stay. Her symptoms improved with treatment. On day of discharge she denied depression, anxiety, insomnia, SI/HI. Her delusions were baseline and she called them her imaginary friends. She was discharged home after family meeting with her grandmother with follow-up at [facility], Dr. Pugh. She felt safe for discharge. DISCHARGE ASSESSMENT: Pt seen in her room with 1:1 sitter and states she doing good and a very happy to be going home today with her grandmother. Pt continues to look for "Yaneth" who she describes as her "imaginary friend." Pt is very childlike, imaginary friends are very common and not treated during childhood, and since she is very childlike due to Autism most likely it's something not needing to be treated and pt tells staff she knows "Yaneth" isn't really but having a friend like "Yaneth" comforts her. Pt's memory remains very poor (most likely that is her baseline)Pt is very low functioning. Pt has very poor boundaries. She appears to be tolerating invega sustenna 156mg im well and appears beneficial to allow pt to be more calm and redirectable. She is agreeable with taking invega sustenna IM after discussed with her. She denieds depression, anxiety, insomnia, SI/HI. Feels safe to d/c home with her grandmother today. MENTAL STATUS EXAMINATION ON DISCHARGE: General Appearance: well groomed, appears stated age, hospital scrubs/clothing Demeanor: very fidgety, other (childlike) Eye Contact: average Activity: anxious, other (childlike) Behavior: cooperative, restless Speech: clear, reg/rate,rhythm,volume, non-spontaneous Mood: euthymic Mood "good" Affect: full Thought Process: concrete Thought Content (Delusions): denies SI, HI, AVH (voice of "the D person" she doesn't like, "I hear Yaneth's voice I want to be with her she's my friend."), delusions ("Yaneth", " she's always with me and is my friend") that are baseline and her imaginary friends Thought Content (Other): autistic Thought Content (Aggressive): none reported Perception (Hallucinations): none reported Perception (Other): none reported Cognition (Impairment of): memory, attention/concentration, ability to abstract Cognition(Intelligence Est.): MR Oriented: Awake, Alert, Oriented times three Insight: poor (very) Judgment: Poor (very) Psychosis: Abstract Thinking MEDICATIONS ON DISCHARGE: invega sustenna 156mg IM qmonthly Guanfacine 1mg bid vistaril 25mg q6hr prn anxiety PLAN/FOLLOWUP ARRANGEMENTS: D/c home with follow-up at [facility] Dr. Pugh. The amount of time spent in the coordination of care for this patient was ap proximately 30 minutes. Vital Signs/I&Os Vital Signs Date Time Temp Pulse Resp B/P (MAP) Pulse Ox O2 Delivery O2 Flow Rate FiO2 09/07/19 08:36 114/64 09/07/19 06:16 98.6 110 18 09/01/19 06:18 Room Air Medications Scheduled Lamotrigine (Lamotrigine) 100 Mg Tablet, 100 MG PO BID, (Reported) Multivit-Minerals/Folic Acid (Adult Multi Gummies) 200 Mcg Tab.chew, 2 CHW PO DAILY, (Reported) Risperidone (Risperidone) 0.25 Mg Tablet, 0.25 MG PO BID, (Reported) Scheduled PRN Ibuprofen (Ibuprofen) 400 Mg Tablet, 400 MG PO BID PRN for CRAMPS, (Reported) Allergies Coded Allergies: No Known Allergies (Unverified , 09/10/14) SIMON SHEIKH DO Sep 07, 2019 8:58 am
[2019-09-07 15:21] VITALS: BP 115/65
== END 2019-09-07 17:00 | disposition home or self-care (01) | DRG 750 ==
LOC: M ED 12:01 → EDBD 12:01 → M ED INP 14:42 → M PSY 19:07
PROVIDERS: ADMIT Psychiatry & Neurology Psychiatry; ATTEND Psychiatry & Neurology Psychiatry
DX: F20.3 Undifferentiated schizophrenia (principal); F72 Severe intellectual disabilities; Z91.14 Patient's other noncompliance with medication regimen; F84.0 Autistic disorder; Z79.899 Other long term (current) drug therapy

== ENCOUNTER 2019-09-25 11:47 | Emergency (ER) | payer MEDICAID, OTHER ==
[~2019-09-25 11:47] MED LIST changes: +GUAN1TA PO; +HYDR-3363 PO; +INVE156I IM; -LAMO100T PO; +LAMO100T3 PO
[2019-09-25] MEDS ORDERED: AMOX500C PO (13:36)
[2019-09-25] MEDS ORDERED: AMOXICILLIN 500 MG CAP PO ONE (13:45)
[2019-09-25 14:26] VITALS: BP 128/71
== END 2019-09-25 14:27 | disposition home or self-care (01) ==
LOC: M ED 11:47
DX: J02.0 Streptococcal pharyngitis (principal); F43.0 Acute stress reaction; G31.84 Mild cognitive impairment of uncertain or unknown etiology; R56.9 Unspecified convulsions; Z79.899 Other long term (current) drug therapy

== ENCOUNTER 2019-10-08 13:06 | Emergency (ER) | payer MEDICAID, OTHER ==
[~2019-10-08] VITALS: Ht 166.4 cm; Wt 57.3 kg
[~2019-10-08 13:06] MED LIST changes: +AMOX500C PO
[2019-10-08 15:13] VITALS: BP 141/80
== END 2019-10-08 15:14 | disposition home or self-care (01) ==
LOC: M ED 13:06
DX: F72 Severe intellectual disabilities (principal); Z79.899 Other long term (current) drug therapy

== ENCOUNTER 2019-10-10 10:12 | Inpatient (IN) | payer MEDICAID, OTHER ==
[~2019-10-10] VITALS: Ht 165.1 cm; Wt 52.6 kg
[2019-10-10 11:55] LABS: HEMATOCRIT 42.8 % (36.0-47.0); HEMOGLOBIN 14.4 g/dl (12.0-15.5); MEAN CORPUSCULAR HEMOGLOBIN 31.9 pg (27.0-33.0); MEAN CORPUSCULAR HGB CONC 33.6 g/dl (32.0-36.5); MEAN CORPUSCULAR VOLUME 94.7 fl (80.0-96.0); PLATELET COUNT, AUTOMATED 206 10^3/uL (150-450); RED BLOOD COUNT 4.52 10^6/uL (4.00-5.40); WHITE BLOOD COUNT 6.1 10^3/uL (4.0-10.0)
[2019-10-10 12:19] LABS: HCG, SERUM QUALITATIVE NEGATIVE (NEGATIVE)
[2019-10-10] MEDS ORDERED: GUAN1TA PO (12:19)
[2019-10-10] MEDS ORDERED: RISP0.5T3 PO (12:19)
[2019-10-10] MEDS ORDERED: LAMO100T80 PO (12:19)
[2019-10-10 12:28] LABS: ACETAMINOPHEN LEVEL < 2.0 UG/ML (10.0-30.0); ALT/SGPT 23 U/L (12-78); BILIRUBIN,DIRECT 0.1 MG/DL (0.0-0.2); BILIRUBIN,TOTAL 0.6 MG/DL (0.2-1.0); BLOOD UREA NITROGEN 9 MG/DL (7-18); CALCIUM LEVEL 9.1 MG/DL (8.5-10.1); CARBON DIOXIDE LEVEL 27 MEQ/L (21-32); CHLORIDE LEVEL 105 MEQ/L (98-107); CREATININE FOR GFR 0.62 MG/DL (0.55-1.30); ETHYL ALCOHOL (ETHANOL) < 0.003 % (0.000-0.010); GLOMERULAR FILTRATION RATE > 60.0 (>60); GLUCOSE, FASTING 92 MG/DL (70-100); POTASSIUM SERUM 4.1 MEQ/L (3.5-5.1); SALICYLATE LEVEL < 1.7 MG/DL (5.0-30.0); SODIUM LEVEL 140 MEQ/L (136-145); THYROID STIMULATING HORMONE 0.755 uIU/ML (0.358-3.740); TOTAL PROTEIN 7.3 GM/DL (6.4-8.2)
[2019-10-10] MEDS ORDERED: IBUPROFEN 400 MG TAB PO PRN (15:15)
[2019-10-10] MEDS ORDERED: MAALOX 30 ML SUSP *UDC PO PRN (15:30)
[2019-10-10] MEDS ORDERED: MOM 30ML SUSPENSION UDC PO PRN (15:30)
[2019-10-10 15:55] VITALS: BP 132/74
[2019-10-10] MEDS: CEPACOL LOZENGE PO PRN (19:01)
[2019-10-10] MEDS: OLANZapine 5 MG TAB PO PRN (19:56)
[2019-10-10] MEDS: lamoTRIgine 100MG TAB PO SCH (20:00)
[2019-10-10] MEDS: risperiDONE 0.25 MG TAB PO SCH (20:03)
[2019-10-10] MEDS: guanFACINE 1 MG TAB PO SCH (20:03)
[2019-10-11] MEDS: traZODone 50 MG TAB PO PRN ×2 (00:24→23:32)
[2019-10-11] MEDS: OLANZapine 5 MG TAB PO PRN (00:24)
[2019-10-11 06:23] VITALS: BP 108/59
[2019-10-11] MEDS: CEPACOL LOZENGE PO PRN ×2 (06:27→11:45)
[2019-10-11] MEDS: lamoTRIgine 100MG TAB PO SCH ×2 (08:28→20:19)
[2019-10-11] MEDS: risperiDONE 0.25 MG TAB PO SCH (08:29)
[2019-10-11] MEDS: guanFACINE 1 MG TAB PO SCH ×2 (08:31→20:19)
[2019-10-11] MEDS ORDERED: MULTIVITAMINS CHILDREN'S CHEWABLE TABLET PO SCH (09:00)
--- NOTE | 2019-10-11 10:12 | HPEPDOC ---
General Date of Admission Oct 10, 2019 at 15:10 Date of Service: Oct 11, 2019 Chief Complaint The patient is a 24-year-old female Who presented to the emergency room after experiencing stress History of Present Illness Patient is a 17-year-old female with a past medical history of seizure disorders who presented to the emergency room with incentive feeling overwhelmed and stressed. She reports hallucinations and seeing multiple people that she describes as friends. . Hospitalist service was called for medical screening evaluation. Currently patient denies any headache, nausea, vomiting, sore throat, chest pain, shortness of breath, palpitations, cough, abdominal pain, constipation or diarrhea. Patient denies any urinary discomfort and has not noted any fevers or chills over last 2 weeks. Patient reports that her appetite is fairly normal and denies any significant change of her weights. Home Medications Scheduled Guanfacine HCl (Guanfacine HCl) 1 Mg Tablet, 1 MG PO BID, (Reported) Lamotrigine (Lamotrigine) 100 Mg Tablet, 100 MG PO BID, (Reported) Multivit-Minerals/Folic Acid (Adult Multi Gummies) 200 Mcg Tab.chew, 2 CHW PO DAILY, (Reported) Risperidone (Risperidone) 0.5 Mg Tablet, 0.25 MG PO BID, (Reported) Scheduled PRN Ibuprofen (Ibuprofen) 400 Mg Tablet, 400 MG PO BID PRN for CRAMPS, (Reported) Allergies Coded Allergies: No Known Allergies (Unverified , 09/10/14) Past Medical History Medical History Seizure disorders Anxiety/depression/psychosis Surgical History Denies any prior surgeries Family History - Patient reports that she does with her grandmother and is unaware of her parents past medical history Social History - Denies the use of alcohol, tobacco or illicit drugs - Denies recent travel or sick contacts - Lives with grandmotherAurea - Patient reports that she used to go Monitor My Meds Review of Systems Other systems 10 point review of systems complete, all negative otherwise stated in HPI Vital Signs - Vitals: BP 126/60, HR 86, RR 18, Sat 98%RA, Temp 98.3F - General: Lying in bed, No acute distress, Speaking in full sentences, AAOx3 - HEENT: NC, AT, PERRLA, EOMI - CVS: RRR, +S1S2 - Lungs: Fair air entry bilaterally, No appreciable wheezing / rales / rhonchi - Abdomen: Soft, Non-distended, Non-tender - Extremities: No lower extremity edema, No calf tenderness - Neuro: No focal motor or sensory deficit - Skin: No visible rashes Laboratory Data Labs 24H Laboratory Tests 2 10/10/19 11:37: Nucleated Red Blood Cells % (auto) 0.0, Anion Gap 8, Glomerular Filtration Rate > 60.0, Calcium Level 9.1, Total Bilirubin 0.6, Direct Bilirubin 0.1, Aspartate Amino Transf (AST/SGOT) 18, Alanine Aminotransferase (ALT/SGPT) 23, Alkaline Phosphatase 56, Total Protein 7.3, Albumin 4.0, Albumin/Globulin Ratio 1.21, Thyroid Stimulating Hormone (TSH) 0.755, Human Chorionic Gonadotropin, Qual NEGATIVE, Salicylates Level < 1.7L, Acetaminophen Level < 2.0L, Ethyl Alcohol Level < 0.003 CBC/BMP Laboratory Tests 10/10/19 11:37 Microbiology Microbiology 10/10/19 Group A Streptococcus Screen (KONG) - Final, Complete Plan / VTE VTE Prophylaxis Ordered?: Yes Plan Plan Psychosis - Patient presented to the emergency room after feeling stressed and overwhelmed - Patient reports seeing multiple he full in the room that are not present - This is currently being managed by psychiatry Seizure disorder - c/w Lamotrigine DVT prophylaxis - Continue with early ambulation Female screedman/laborer was present throughout the duration of this history and physi meri examination Thank you for this consult; please re-consult as needed ABNER ABBASI MD Oct 11, 2019 10:12
[2019-10-11 11:53] VITALS: BP 117/77
[2019-10-11 15:32] VITALS: BP 110/74
--- NOTE | 2019-10-11 19:45 | MHHPE ---
DATE OF ADMISSION: 10/10/2019 CHIEF COMPLAINT: Feels stressed. HISTORY OF PRESENT ILLNESS: She is 23 years old. She has a history of considerable psychiatric difficulties, carries a diagnoses of schizophrenia, intellectual disability, learning disabilities, and one of the records suggests autism spectrum disorder. Apparently sees Dr. Pugh in the outpatient clinic. She was here at the hospital recently, between August 31 and September 07, 2019, considered to have delusional disorder, though other records have suggested schizophrenia. Was diagnosed with intellectual disability and autistic spectrum disorder as well. Was discharged at that time on risperidone at 0.25 mg twice a day, lamotrigine 100 mg twice a day. She was also apparently given Invega Sustenna 156 mg intramuscular during her stay here. The details of the circumstances of the admission in August are included in Dr. Leggett discharge summary, which was reviewed. The patient is unable to firmly state what brought her back, but does say she has felt stressed, and she speaks of a friend called Yaneth, and then alludes to hearing Yaneth's voice and the voice of another person, whom she refers to as the "D person," which she suggests disturbs her. Her grandmother had contacted behavioral health services, as she has expressed concerns regarding the patient's hallucinations. The patient had been leaving the residence without informing the grandmother as well. She is concerned about the patient's safety, and felt the patient was getting worse, had in fact been given Invega injectable a few days prior to coming here. Her functioning has deteriorated, she has not been sleeping well. PAST PSYCHIATRIC HISTORY: Please refer to previous summaries, as well as for background history as well. MENTAL STATUS EXAMINATION: She is seen in the presence of staff. She is sitting up in bed, working on a coloring book, is cooperative. No agitation. No psychomotor retardation. She is tangential in thought, possibly disorganized as well, gives answers that are not relevant to the topic being discussed. At present, does not appear to be internally preoccupied. Says does hear voices. Denies suicidal thoughts or intents. Affect is of fair range. She is alert and oriented to place and person but not fully to time. She thought it was 10/03/2019. No fluctuation of consciousness. Intellect is below average. Judgment and insight are compromised. VITAL SIGNS: Blood pressure 108/59, pulse 110, temperature 98.3. INVESTIGATIONS: These show a complete blood count within normal limits. Metabolic profile within normal limits. ASSESSMENT: 1. Schizophrenia. 2. Intellectual disability. 3. Autistic spectrum disorder. Her ability to function has deteriorated, has been increasingly psychotic. Judgment and insight are compromised. Her intellectual deficits may have well complicated the picture further. PLAN: She is admitted to the inpatient psychiatry unit and placed on relevant precautions. We will look at obtaining collateral information. She has seen the hospitalist for an initial assessment. She will be resumed on previous medications, including guanfacine 1 mg twice a day, lamotrigine 100 mg twice a day, risperidone 0.25 mg twice a day, though we may need to look at increasing this slightly. We will look at obtaining collateral information as well. She will be involved in individual, group and milieu therapy. She may require an increase in the dose of the Invega Sustenna, though it is preferable if an increase is avoided given that she is more likely to have side effects. She will see the treatment team and the assigned psychiatrist tomorrow. She will be discharged with followup once she is stable. I would anticipate a 5 to 7 day stay. The assessment took 30 minutes.
[2019-10-11] MEDS ORDERED: risperiDONE 0.5 MG TAB PO SCH (21:00)
[2019-10-12 06:38] VITALS: BP 122/82
[2019-10-12] MEDS ORDERED: risperiDONE 0.25 MG TAB PO SCH (09:00)
[2019-10-12] MEDS: lamoTRIgine 100MG TAB PO SCH ×2 (09:18→22:11)
[2019-10-12] MEDS: guanFACINE 1 MG TAB PO SCH ×2 (09:28→22:12)
[2019-10-12] MEDS: OLANZapine 5 MG TAB PO PRN (11:54)
[2019-10-12 12:00] VITALS: BP 113/61
[2019-10-12] MEDS ORDERED: INVE156I IM (14:02)
[2019-10-12] MEDS: risperiDONE 1 MG TAB PO SCH ×2 (15:46→22:12)
[2019-10-12 16:34] VITALS: BP 119/71
[2019-10-12 22:00] VITALS: BP 111/68
[2019-10-12] MEDS: traZODone 50 MG TAB PO PRN (22:11)
[2019-10-13 06:00] VITALS: BP 118/82
[2019-10-13] MEDS: lamoTRIgine 100MG TAB PO SCH ×2 (08:26→20:44)
[2019-10-13] MEDS: risperiDONE 1 MG TAB PO SCH ×3 (08:26→20:44)
[2019-10-13] MEDS: guanFACINE 1 MG TAB PO SCH ×2 (08:27→20:44)
--- NOTE | 2019-10-13 09:58 | MHIPN ---
DATE: 10/12/2019 VITAL SIGNS: Temperature 98.1, pulse 90, respirations 16, blood pressure 122/82. HISTORY OF PRESENT ILLNESS: This is a 23-year-old female admitted by Dr. Noe. The patient has a diagnosis of schizophrenia with intellectual disability disorder, learning disabilities and possible autism spectrum disorder. The patient sees Dr. Pugh in the outpatient clinic. Patient lives with her grandmother. The patient has decompensated recently. The patient is troubled by psychotic symptoms. She is troubled by constant nagging and criticism from thee auditory hallucinations. Due to her limited IQ she struggles to cope with them. MENTAL STATUS EXAMINATION: Patient is alert, oriented and somewhat cooperative. She is working on a coloring book. Speech is rambling and tangential. She is often nonresponsive to questioning with obvious thought disorder. She reports frequent auditory hallucinations. IQ is limited. Insight and judgment appear quite impaired. ASSESSMENT: The patient appears to have had a relapse of her psychotic disorder. DIAGNOSIS: Schizophrenia Intellectual Disability Autism Spectrum Disorder PLAN: Increase dosage of Risperdal to 1 mg three times a day as tolerated. Patient encouraged to become more active in the hospital milieu. MTDD
[2019-10-13 11:55] VITALS: BP 119/71
[2019-10-13 16:08] VITALS: BP 136/78
[2019-10-13] MEDS: traZODone 50 MG TAB PO PRN (20:44)
--- NOTE | 2019-10-13 23:00 | MHIPN ---
DATE: 10/13/2019 VITAL SIGNS: Temperature 98.2, pulse 106, respirations 18, blood pressure 118/82. CURRENT MEDICATIONS: - Risperdal 1 mg three times a day - guanfacine 1 mg twice a day - Lamictal 100 mg twice a day - trazodone 50 at bedtime (hs) - Zyprexa 5 mg every 4 hours as needed HISTORY OF PRESENT ILLNESS: The patient reports she feels somewhat better. The patient ventilates about various so-called friends. Staff feels that these are imaginary friends. However, one o them apparently is a woman in the community, who has befriended her. The patient wants to move in with this woman, which is in appropriate. The patient is seen in a family meeting with her grandmother. Her mother reports that the patient is not at baseline. The patient states that her medications help her, but is unable to explain exactly why. She does have good medication compliance. Apparently at home, she takes her medication on her own and has a pill box. The patient is getting her Invega Sustenna monthly injection. Her last dose was October 05 apparently. It was 156 mg intramuscular (IM) dosage. MENTAL STATUS EXAMINATION: The patient is a alert and oriented and recently cooperative. Speech is still rambling and tangential. She often refers to auditory hallucinations. She does have a thought disorder, which is not as prominent. Intelligence quotient (IQ) remains limited. Insight and judgment appear fair. No current signs of dangerousness. ASSESSMENT: The patient is not at baseline according to the patient's grandmother, though apparently is responding to her psychotropics. DIAGNOSIS: Schizophrenia Int. Disability PLAN: Continue present management. Monitor in the hospital Milieu. OMAYRA
[2019-10-14 06:22] VITALS: BP 135/70
[2019-10-14] MEDS: risperiDONE 1 MG TAB PO SCH (08:04)
[2019-10-14] MEDS: guanFACINE 1 MG TAB PO SCH ×2 (08:04→20:22)
[2019-10-14] MEDS: lamoTRIgine 100MG TAB PO SCH ×2 (08:04→20:22)
[2019-10-14] MEDS: OLANZapine 5 MG TAB PO PRN (08:26)
--- NOTE | 2019-10-14 15:21 | MHIPN ---
DATE: 10/14/2019 VITAL SIGNS: Temperature 99.1, pulse 96, respirations 18, blood pressure 135/70. CURRENT MEDICATIONS: - Risperdal 1 mg three times a day - guanfacine 1 mg twice a day - Lamictal 100 mg twice a day - trazodone 50 mg at night as needed - Zyprexa 5 mg every 4 hours as needed HISTORY OF PRESENT ILLNESS: The patient states that her mood is improved. She does her best to be happy. She is medication compliant. She has good compliance at home, according to her mother. The patient states that she is still hearing voices but that they are improved. She has found her medication helpful. The patient spends most of her time isolated in the room with little interaction with the therapeutic milieu. MENTAL STATUS EXAMINATION: The patient is alert and oriented. She is cooperative today. Thought disorder less prominent. Speech is more coherent and appropriate. She still reports some auditory hallucinations. IQ remains limited. Insight and judgment appear fair. No current signs of being a danger to himself or others. No signs of impulsivity. ASSESSMENT: The patient appears to be responding to her psychotropics. DIAGNOSES: 1. Schizophrenia. 2. Intellectual disability disorder. 3. Autism spectrum disorder. 4. Learning disability. PLAN: The patient is switched to Risperdal 1 mg in the morning and 2 mg at night.
[2019-10-14 16:30] VITALS: BP 113/70
[2019-10-14] MEDS: traZODone 50 MG TAB PO PRN (20:22)
[2019-10-14] MEDS ORDERED: risperiDONE 2 MG TAB PO SCH (21:00)
[2019-10-15] MEDS: CEPACOL LOZENGE PO PRN (04:00)
[2019-10-15 06:12] VITALS: BP 113/57
[2019-10-15] MEDS ORDERED: risperiDONE 1 MG TAB PO SCH (09:00)
[2019-10-15 09:04] VITALS: BP 113/64
[2019-10-15] MEDS: lamoTRIgine 100MG TAB PO SCH (09:04)
[2019-10-15] MEDS: guanFACINE 1 MG TAB PO SCH (09:04)
[2019-10-15] MEDS ORDERED: TRAZ-252 PO (10:43)
[2019-10-15] MEDS ORDERED: RISP1TAB42 PO (10:43)
[2019-10-15] MEDS ORDERED: RISP2TAB32 PO (10:43)
--- NOTE | 2019-10-15 17:57 | MHDS ---
DATE OF ADMISSION: 10/10/2019 DATE OF DISCHARGE: 10/15/2019 VITAL SIGNS: Temperature 98.3, pulse 106, respirations 16, blood pressure 113/57. LABORATORY DATA: CBC, differential within normal limits. Serum chemistry within normal limits. test negative. Toxicology screen: Ethyl alcohol 0. DISCHARGE DIAGNOSIS: 1. Schizophrenia, chronic with acute episode. 2. Intellectual disability disorder. 3. Autism spectrum disorder. DISCHARGE MEDICATIONS: - Risperdal 1 mg every morning, 2 mg at bedtime - Lamictal 100 mg twice a day - guanfacine 1 mg twice a day - trazodone 50 mg at bedtime as needed - Invega Sustenna monthly. Next shot due mid October 2019 CHIEF COMPLAINT: Change in patient's behavior, according to grandmother, her family caregiver. HISTORY OF PRESENT ILLNESS: Patient has a long history of schizophrenia and grandmother is concerned about her worsening behavior and her safety. The patient has been leaving the house without informing her grandmother. The patient has been showing more psychotic symptoms with hallucinations as well. She is not sleeping well, according to the grandmother. The patient in the emergency room admits to the auditory hallucinations, especially from "D person," who has been voicing critical and pejorative statements directed at the patient. Patient had just received an Invega Sustenna injection on October 05. PROGRESS ON THE UNIT: The patient continued to show psychotic symptoms on the unit, speaking frequently about the auditory hallucinations, both good and bad, that were tormenting her. She did appear guarded and paranoid. She isolated to her room, spending most of the day with coloring books. Patient's social skills were minimal due to her impaired cognitive function. The patient had no behavioral outbursts on the unit. Her Risperdal was increased up to 3 mg per day with some benefit. Her psychotic symptoms appeared less prominent. She showed improvement in her behavior. A family meeting was held several days prior to discharge. The patient has good medication compliance, according to the grandmother and the patient. Patient was agreeable to followup with outpatient mental health provider. MENTAL STATUS EXAMINATION: At time of discharge, patient was alert. She was oriented to place and person but not to time. Patient's IQ is limited. Insight and judgment are impaired. She reported auditory hallucinations. Speech was rambling and tangential. No signs of depression or madonna. No signs of dangerousness. ASSESSMENT: Patient appears to have reached maximal hospital benefit. Additional Risperdal in combination with her Invega Sustenna appears to have lessened her psychotic symptoms. PLAN: Discharge to outpatient mental health services. Perhaps her Invega Sustenna injection dosage can be increased at next visit in mid October.
== END 2019-10-15 13:55 | disposition home or self-care (01) | DRG 751 ==
LOC: M ED 10:12 → M ED INP 15:10 → M PSY 16:06
PROVIDERS: ADMIT Psychiatry & Neurology Psychiatry; ATTEND Psychiatry & Neurology Addiction Medicine
DX: F23 Brief psychotic disorder (principal); F79 Unspecified intellectual disabilities; F84.0 Autistic disorder; G40.909 Epilepsy, unspecified, not intractable, without status epilepticus; Z79.899 Other long term (current) drug therapy

== ENCOUNTER 2019-10-18 11:47 | Emergency (ER) | payer MEDICAID, OTHER ==
[~2019-10-18 11:47] MED LIST changes: +LAMO100T80 PO; +RISP0.5T3 PO; +RISP1TAB42 PO; +TRAZ-252 PO
[2019-10-18] MEDS ORDERED: risperiDONE 2 MG TAB PO ONE ×2 (13:15→21:30)
[2019-10-18 13:29] LABS: HEMATOCRIT 39.9 % (36.0-47.0); HEMOGLOBIN 13.4 g/dl (12.0-15.5); MEAN CORPUSCULAR HEMOGLOBIN 32.1 pg (27.0-33.0); MEAN CORPUSCULAR HGB CONC 33.6 g/dl (32.0-36.5); MEAN CORPUSCULAR VOLUME 95.7 fl (80.0-96.0); PLATELET COUNT, AUTOMATED 188 10^3/uL (150-450); RED BLOOD COUNT 4.17 10^6/uL (4.00-5.40); WHITE BLOOD COUNT 6.2 10^3/uL (4.0-10.0)
[2019-10-18 14:08] LABS: ACETAMINOPHEN LEVEL < 2.0 UG/ML (10.0-30.0); ALBUMIN 3.9 GM/DL (3.2-5.2); ALT/SGPT 22 U/L (12-78); BILIRUBIN,DIRECT < 0.1 MG/DL (0.0-0.2); BILIRUBIN,TOTAL 0.3 MG/DL (0.2-1.0); BLOOD UREA NITROGEN 11 MG/DL (7-18); CALCIUM LEVEL 8.5 MG/DL (8.5-10.1); CARBON DIOXIDE LEVEL 25 MEQ/L (21-32); CHLORIDE LEVEL 108 MEQ/L (98-107); CREATININE FOR GFR 0.66 MG/DL (0.55-1.30); ETHYL ALCOHOL (ETHANOL) < 0.003 % (0.000-0.010); GLOMERULAR FILTRATION RATE > 60.0 (>60); GLUCOSE, FASTING 95 MG/DL (70-100); SALICYLATE LEVEL < 1.7 MG/DL (5.0-30.0); SODIUM LEVEL 140 MEQ/L (136-145); THYROID STIMULATING HORMONE 0.631 uIU/ML (0.358-3.740); TOTAL PROTEIN 6.9 GM/DL (6.4-8.2)
[2019-10-18 14:26] LABS: HCG, SERUM QUALITATIVE NEGATIVE (NEGATIVE)
[2019-10-19 08:04] LABS: AMPHETAMINES LEVEL URINE NEGATIVE (NEGATIVE); BARBITURATES URINE NEGATIVE (NEGATIVE); BENZODIAZEPINES URINE NEGATIVE (NEGATIVE); CANNABINOIDS URINE NEGATIVE (NEGATIVE); COCAINE METABOLITE URINE NEGATIVE (NEGATIVE); METHADONE URINE NEGATIVE (NEGATIVE); OPIATES URINE NEGATIVE (NEGATIVE); PHENCYCLIDINE URINE NEGATIVE (NEGATIVE)
[2019-10-19] MEDS ORDERED: TRAZ-252 PO (08:12)
[2019-10-19] MEDS ORDERED: RISP2TAB3 PO (08:12)
[2019-10-19] MEDS ORDERED: RISP1TAB3 PO (08:12)
--- NOTE | 2019-10-19 08:31 | ED PDOC ---
Provider Note Consult Nava Turner MRN: N/A Date of : N/A Date of Service: 10/19/2019 Chief Complaint Consultation for psychosis in the ER. History of Present Illness The patient is a well known 24-year-old woman with significant intellectual disabilities, presents reporting hearing voices of "the demon" a consistent symptom she has reported for several months since I had seen her in the ER roughly 2 months ago where she had been admitted several times in between to the inpatient mental health unit staying for only a very short time as she can tolerate socialization very lowest. her IQ has been notably quite low. The previous evening Dr. Sarah had ordered risperidone to try on the patient to see if that improves her as she is on risperidone at home and see if it improves her situation. She also has poor frustration tolerance and generally reports these psychotic symptoms when she is stressed out, however, mental status exam does not appear to demonstrate any internal response to stimuli and that she generally appears as a fairly intellectually limited individual with poor frustration tolerance. She currently sees Dr. Pugh as an outpatient and there is notable concerns that the grandmother is refusing to allow her to go to an OPWDD facility out of financial gain for continued having her at home despite the fact that her grandmother's health has been declining and the patient is unable to care for herself. When I met with the patient she reported that she was doing "way better" and that the risperidone helped her to feel better. She no longer reports any of the voices describing that she wanted to go home and that she feels overall good." The psychosocial information is taken from previous H&Ps and updated accordingly. Review Of Systems Depression: No changes. Anxiety: No changes. Neris: No changes. Psychotic: No changes. Trauma: No changes. Borderline: No changes. Past Psychiatric History Has a history of diagnosed with autism, sees Dr. Pugh at [facility]. Had been on risperidone, Lamictal in the past. Has noted problems with compliance. Has had 2 psychiatric admissions last several weeks ago. Denies any history of suicide attempt. Family Psychiatric History Reportedly has a biological mother with bipolar disorder. Denies any history of suicide or addiction. Social History The patient currently lives with her mother, her autistic uncle as currently being cared for at times by her biological mother although she is generally unable to care for her. She is graduated from an IEP with no history of substance abuse, is unemployed, never with no children. Medical History Has a history of seizures. Allergies See below Mental Status Examination General: Well dressed with good hygiene Speech: Spontaneous and fluid Thought processes: Linear and logical MSK: Smooth and coordinated gait, no signs of tremors or involuntary orofacial movements Thought content: Future orientated Abstract reasoning, and computation: Intact Description of associations: Intact Description of abnormal or psychotic thoughts: Denies any suicidal or homicidal ideation. Denies any auditory or visual hallucinations. Does not appear to be responding to internal stimuli. Does not appear to be endorsing any bizarre or paranoid ideation. Judgment: Baseline Insight: Baseline Orientation: Alert and orientated 3 Cognition: Grossly normal Recent and remote memory: Intact Attention span and concentration: Intact Fund of knowledge: Limited at baseline Mood: "okay" Affect: Euthymic with a full range Diagnoses Intellectual disability moderate to severe. Autism spectrum disorder. Assessment and Plan The patient is a well known 24-year-old woman with a history of intellectual disability and autism, presents in a stressful situation reporting psychotic symptoms of no signs of mental status changes. She is given a low-dose risperidone that appears to soothe her anxiety where subsequently she psychotic symptoms and is at her baseline. She requests to go and at this time does not meet involuntary criteria. She has denied suicidal and homicidal ideation, is at her baseline level of function and currently lives with her grandmother. It has been previously discussed with grandmother about the need for an OPWDD facility for the patient to live in. She declines voluntary admission and thus is discharged in good albert. Disposition Discharged to home. Time Spent 30 minutes. Saturday AMBER RAO DO Oct 19, 2019 08:31
[2019-10-19 08:33] VITALS: BP 123/67
== END 2019-10-19 08:50 | disposition home or self-care (01) ==
LOC: M ED 11:47
DX: F84.0 Autistic disorder (principal); Z79.899 Other long term (current) drug therapy
CPT/HCPCS: 36415; 80048; 80076; 80175; 80307; 84443; 84703; 85027; 99284; G0480

== ENCOUNTER 2019-10-25 11:52 | Emergency (ER) | payer OTHER ==
[~2019-10-25] VITALS: Ht 162.6 cm; Wt 56.6 kg
[~2019-10-25 11:52] MED LIST changes: +RISP2TAB3 PO
[2019-10-25 13:54] LABS: HEMATOCRIT 40.2 % (36.0-47.0); HEMOGLOBIN 13.5 g/dl (12.0-15.5); MEAN CORPUSCULAR HEMOGLOBIN 31.5 pg (27.0-33.0); MEAN CORPUSCULAR HGB CONC 33.6 g/dl (32.0-36.5); MEAN CORPUSCULAR VOLUME 93.7 fl (80.0-96.0); PLATELET COUNT, AUTOMATED 199 10^3/uL (150-450); RED BLOOD COUNT 4.29 10^6/uL (4.00-5.40); WHITE BLOOD COUNT 6.7 10^3/uL (4.0-10.0)
[2019-10-25 14:19] LABS: AMPHETAMINES LEVEL URINE NEGATIVE (NEGATIVE); BARBITURATES URINE NEGATIVE (NEGATIVE); BENZODIAZEPINES URINE NEGATIVE (NEGATIVE); CANNABINOIDS URINE NEGATIVE (NEGATIVE); COCAINE METABOLITE URINE NEGATIVE (NEGATIVE); METHADONE URINE NEGATIVE (NEGATIVE); OPIATES URINE NEGATIVE (NEGATIVE); PHENCYCLIDINE URINE NEGATIVE (NEGATIVE)
[2019-10-25 14:21] LABS: HCG, SERUM QUALITATIVE NEGATIVE (NEGATIVE)
[2019-10-25 14:29] LABS: ACETAMINOPHEN LEVEL < 2.0 UG/ML (10.0-30.0); ALBUMIN 3.9 GM/DL (3.2-5.2); ALT/SGPT 23 U/L (12-78); BILIRUBIN,DIRECT 0.1 MG/DL (0.0-0.2); BILIRUBIN,TOTAL 0.3 MG/DL (0.2-1.0); BLOOD UREA NITROGEN 15 MG/DL (7-18); CALCIUM LEVEL 9.1 MG/DL (8.5-10.1); CARBON DIOXIDE LEVEL 25 MEQ/L (21-32); CHLORIDE LEVEL 106 MEQ/L (98-107); CREATININE FOR GFR 0.61 MG/DL (0.55-1.30); ETHYL ALCOHOL (ETHANOL) < 0.003 % (0.000-0.010); GLOMERULAR FILTRATION RATE > 60.0 (>60); GLUCOSE, FASTING 143 MG/DL (70-100); POTASSIUM SERUM 4.1 MEQ/L (3.5-5.1); SALICYLATE LEVEL < 1.7 MG/DL (5.0-30.0); SODIUM LEVEL 139 MEQ/L (136-145); TOTAL PROTEIN 7.2 GM/DL (6.4-8.2)
[2019-10-25] MEDS ORDERED: lamoTRIgine 100MG TAB PO ONE (19:00)
[2019-10-25] MEDS ORDERED: guanFACINE 1 MG TAB PO ONE (19:00)
[2019-10-25] MEDS ORDERED: risperiDONE 2 MG TAB PO ONE (19:15)
[2019-10-26] MEDS ORDERED: LORazepam 1 MG TAB PO ONE (02:00)
[2019-10-26] MEDS ORDERED: guanFACINE 1 MG TAB PO ONE (09:00)
[2019-10-26] MEDS ORDERED: lamoTRIgine 100MG TAB PO ONE (09:00)
[2019-10-26] MEDS ORDERED: risperiDONE 1 MG TAB PO ONE (09:00)
[2019-10-26 09:34] VITALS: BP 121/88
[2019-10-26] MEDS ORDERED: HYDR1CAP25 PO (11:21)
[2019-10-26] MEDS ORDERED: LORA1TAB12 PO (11:21)
--- NOTE | 2019-10-26 11:42 | ED PDOC ---
Provider Note Consult Nava Turner MRN: N/A Date of : N/A Date of Service: 10/26/2019 Chief Complaint "I'm doing great." History of Present Illness The patient, a well-known 24-year-old woman with significant intellectual disabilities and also autism with an estimated IQ of less than 60, presents after reported psychotic symptoms by her grandmother. She is brought in and observed in the ER where she doesn't demonstrate any change from her baseline mental status of severe intellectual disabilities. The patient was observed out of an abundance of caution and a second opinion consult was done in order to ascertain if she had any problems or needed inpatient admission due to her frequent presentations and poor response to inpatient hospitalization, as is common with individuals with significant intellectual disabilities. The patient was met with where she reported that she had her "imaginary friend" consistent with her relatively early developmental age, consistent with her previous presentations. She reports she was doing "great." Did not demonstrate any signs or symptoms of schizophrenia or psychotic thought processes. She reported that she sometimes has stress and gets anxious where she wants to talk to her "imaginary friends." She is undistressed and wishes to go home. Her grandmother has been anxious about admitting her, although there are concerns among multiple different providers that this is done out of a secondary gain due to the grandmother's resistance to place the patient in an OPWDD facility where she would likely do better. The grandmother is adamant about admitting her, however the grandmother does not have guardianship and in the past has not been able to present us with any paperwork indicating she has guardianship over this individual. The psychosocial information below is updated from my previous HP and updated as appropriate. Review Of Systems Depression: No changes. Anxiety: No changes. Neris: No changes. Psychotic: No changes. Trauma: No changes. Borderline: No changes. Past Psychiatric History Has a history of diagnosed with autism, sees Dr. Pugh at [facility]. Had been on risperidone, Lamictal in the past. Has noted problems with compliance. Has had 2 psychiatric admissions last several weeks ago. Denies any history of suicide attempt. Family Psychiatric History Reportedly has a biological mother with bipolar disorder. Denies any history of suicide or addiction. Social History The patient currently lives with her mother, her autistic uncle as currently being cared for at times by her biological mother although she is generally unable to care for her. She is graduated from an IEP with no history of substance abuse, is unemployed, never with no children. Medical History Patient has no significant past medical history. Has a history of seizures. Allergies See below Mental Status Examination Diagnoses Intellectual disability moderate to severe. Autism spectrum disorder. Assessment and Plan The patient, a well-known 24-year-old woman with significant intellectual disabilities, is brought in out of the abundance of concern of her grandmother. However, on observation overnight, she does not appear to be demonstrating any significant change from her baseline, with no signs of psychosis. Her behavioral problems are highly likely to be provoked by stress, as I had seen her several months ago in a similar situation. She has done well on risperidone in the past, which is FDA approved for behavioral problems in autism spectrum disorder and should likely be continued. I further advocate that the patient be referred to OPWDD with appropriate testing, as she would likely do far more appropriately in a residential or other supportive living situation. At this time, she does not meet involuntary criteria as she is not demonstrating any signs or symptoms of a major mental illness, does not appear to be at imminent risk of harm to herself or others as she has been denying suicidal and homicidal ideation, is at baseline mental status, has not been threatening and has not significantly decreased in her ability to function as per observation for her feeding and ADL behaviors. The patient declines voluntary and at this time cannot be held against her will, and thus must be discharged in good albert. Disposition Discharge to home. Time Spent 30 minutes. Saturday AMBER RAO DO Oct 26, 2019 11:42
[2019-10-26 14:46] VITALS: BP 124/80
== END 2019-10-26 15:12 | disposition home or self-care (01) ==
LOC: M ED 11:52
DX: F20.9 Schizophrenia, unspecified (principal); F84.0 Autistic disorder; F41.9 Anxiety disorder, unspecified; F32.9 Major depressive disorder, single episode, unspecified; Z79.899 Other long term (current) drug therapy
CPT/HCPCS: 36415; 80048; 80076; 80307; 84443; 84703; 85027; 99284; G0480

== ENCOUNTER 2019-11-16 00:15 | Emergency (ER) | payer MEDICAID, OTHER ==
[~2019-11-16 00:15] MED LIST changes: +HYDR1CAP25 PO; +LORA1TAB4 PO
[2019-11-16] MEDS ORDERED: BANO25CA (00:42)
[2019-11-16] MEDS ORDERED: RISP2TAB32 (00:42)
[2019-11-16 01:13] LABS: HEMATOCRIT 38.3 % (36.0-47.0); MEAN CORPUSCULAR HEMOGLOBIN 31.8 pg (27.0-33.0); MEAN CORPUSCULAR HGB CONC 33.9 g/dl (32.0-36.5); MEAN CORPUSCULAR VOLUME 93.6 fl (80.0-96.0); PLATELET COUNT, AUTOMATED 154 10^3/uL (150-450); RED BLOOD COUNT 4.09 10^6/uL (4.00-5.40); WHITE BLOOD COUNT 5.5 10^3/uL (4.0-10.0)
[2019-11-16 01:40] LABS: AMPHETAMINES LEVEL URINE NEGATIVE (NEGATIVE); BARBITURATES URINE NEGATIVE (NEGATIVE); BENZODIAZEPINES URINE NEGATIVE (NEGATIVE); CANNABINOIDS URINE NEGATIVE (NEGATIVE); COCAINE METABOLITE URINE NEGATIVE (NEGATIVE); METHADONE URINE NEGATIVE (NEGATIVE); OPIATES URINE NEGATIVE (NEGATIVE); PHENCYCLIDINE URINE NEGATIVE (NEGATIVE)
[2019-11-16 02:08] LABS: ACETAMINOPHEN LEVEL < 2.0 UG/ML (10.0-30.0); ALT/SGPT 18 U/L (12-78); BILIRUBIN,DIRECT 0.1 MG/DL (0.0-0.2); BILIRUBIN,TOTAL 0.5 MG/DL (0.2-1.0); BLOOD UREA NITROGEN 14 MG/DL (7-18); CALCIUM LEVEL 8.7 MG/DL (8.5-10.1); CARBON DIOXIDE LEVEL 24 MEQ/L (21-32); CHLORIDE LEVEL 107 MEQ/L (98-107); CREATININE FOR GFR 0.65 MG/DL (0.55-1.30); ETHYL ALCOHOL (ETHANOL) < 0.003 % (0.000-0.010); GLOMERULAR FILTRATION RATE > 60.0 (>60); GLUCOSE, FASTING 73 MG/DL (70-100); POTASSIUM SERUM 4.4 MEQ/L (3.5-5.1); SALICYLATE LEVEL < 1.7 MG/DL (5.0-30.0); SODIUM LEVEL 139 MEQ/L (136-145); TOTAL PROTEIN 7.1 GM/DL (6.4-8.2)
[2019-11-16] MEDS ORDERED: risperiDONE 1 MG TAB PO ONE (07:15)
[2019-11-16] MEDS ORDERED: lamoTRIgine 100MG TAB PO ONE (07:15)
[2019-11-16] MEDS ORDERED: guanFACINE 1 MG TAB PO ONE (07:15)
[2019-11-16] MEDS ORDERED: MULTIVITAMINS/MINERALS THERAP 1 TAB PO ONE (07:15)
[2019-11-16] MEDS ORDERED: diphenhydrAMINE 25 MG CAP PO ONE (07:15)
[2019-11-16] MEDS ORDERED: hydrOXYzine 25 MG TAB PO ONE (07:15)
--- NOTE | 2019-11-16 09:24 | ED PDOC ---
Provider Note Consult Nava Turner MRN: N/A Date of : N/A Date of Service: 11/16/2019 Chief Complaint "I need to live away from my mom even though she is lonely when I'm not home." History of Present Illness Patient a well known 24-year-old with significant intellectual disabilities or autism is brought into the ER again after reporting "psychotic symptoms." The patient is observed where a [id number] is requested as she reported auditory hallucinations of which do not appear to be present on mental status exam as there is concern that her grandmother who she calls "mom" who is her primary caregiver is continuing to keep the patient at home due to secondary gain financial benefits from the patient's disability. She has been referred to [facility] where she would likely do better. On this visit, when I meet with the patient, she reports she is doing well and is at her baseline. The patient reports that she feels like her mom would be "lonely" if she moved away, but that she feels that she needs to live somewhere else as she is not living her life to the fullest. The patient's psychosocial information taken from previous assessment and updated as appropriate with patient. Review Of Systems Depression: No change. Anxiety: No change. Neris: No change. Psychotic: No change. Trauma: No change. Borderline: No change. Past Psychiatric History The patient reports no history of psychiatric admissions, medication trials or current follow up.Has a history of diagnosed with autism, sees Dr. Pugh at [facility]. Had been on risperidone, Lamictal in the past. Has noted problems with compliance. Has had 2 psychiatric admissions last several weeks ago. Denies any history of suicide attempt. Family Psychiatric History The patient denies/is unaware any history of mental health history including addictions and suicide. Reportedly has a biological mother with bipolar disorder. Denies any history of suicide or addiction. Social History The patient currently lives with her mother, her autistic uncle as currently being cared for at times by her biological mother although she is generally unable to care for her. She is graduated from an IEP with no history of substance abuse, is unemployed, never with no children. Medical History Has a history of seizures. Allergies See below Mental Status Examination General: Well dressed with good hygiene Speech: Spontaneous and fluid Thought processes: Linear and logical MSK: Smooth and coordinated gait, no signs of tremors or involuntary orofacial movements Thought content: Future orientated Abstract reasoning, and computation: Intact Description of associations: Intact Description of abnormal or psychotic thoughts: Denies any suicidal or homicidal ideation. Denies any auditory or visual hallucinations. Does not appear to be responding to internal stimuli. Does not appear to be endorsing any bizarre or paranoid ideation. Judgment: Chronically limited. Insight: Chronically limited. Orientation: Alert and orientated 3 Cognition: Baseline. Recent and remote memory: Baseline. Attention span and concentration: Intact Fund of knowledge: At baseline, impaired, IQ likely below 60. Mood: "Fine." Affect: Euthymic with a full range Diagnoses Intellectual disability moderate to severe. Autism spectrum disorder. Assessment and Plan The patient a well known 24-year-old woman is brought in for reported psychotic symptoms of which she has been presented to the ER by her mother for multiple different reasons. On every examination, she presents no signs or symptoms consistent with a psychotic illness and denies any suicidal or homicidal ideation. The patient does not wish to stay in the inpatient unit as she reports "scary." In my clinical judgment, she does not meet involuntary criteria as she is at her baseline mental status, primarily suffers from an intellectual disability and I do not believe she has a psychotic illness and is friendly and amenable with this at this time. She declines voluntary admission, must be discharging in good albert. We continued to recommend that she be placed in OPWDD housing of which her grandmother refuses to accept this recommendation. Disposition Discharged to home. Time Spent 30 minutes. Saturday AMBER RAO DO Nov 16, 2019 09:24
[2019-11-16 10:12] VITALS: BP 113/66
== END 2019-11-16 10:17 | disposition home or self-care (01) ==
LOC: M ED 00:15
DX: F79 Unspecified intellectual disabilities (principal); F20.9 Schizophrenia, unspecified; Z79.899 Other long term (current) drug therapy
CPT/HCPCS: 36415; 80048; 80076; 80307; 84443; 85027; 87880; 99285; G0480

== ENCOUNTER 2019-11-30 14:36 | Emergency (ER) | payer OTHER ==
[~2019-11-30] VITALS: Ht 162.6 cm; Wt 55.0 kg
[~2019-11-30 14:36] MED LIST changes: +BANO25CA; +RISP2TAB32
[2019-11-30 14:38] VITALS: BP 115/70
== END 2019-11-30 16:42 | disposition home or self-care (01) ==
LOC: M ED 14:36
DX: F25.9 Schizoaffective disorder, unspecified (principal); Z79.899 Other long term (current) drug therapy

== ENCOUNTER → 2025-07-09 | Outpatient (REF) | payer OTHER ==
[~2025-07-09] MED LIST changes: -BANO25CA; +DIPH-429; +LORA1TAB23 PO; -LORA1TAB4 PO; +RISP-105 PO; +RISP-106 PO; -RISP0.5T3 PO; +RISP0.5T82 PO; -RISP1TAB3 PO; -RISP2TAB3 PO
[2025-07-09 13:59] LABS: PLATELET COUNT, AUTOMATED 174 10^3/uL (150-450)
[2025-07-09 14:03] LABS: ALT/SGPT 28 U/L (7.0-40); AST/SGOT 25 U/L (<34); CALCIUM LEVEL 9.0 MG/DL (8.5-10.1); CARBON DIOXIDE LEVEL 28 MMOL/L (20-31); CHLORIDE LEVEL 104 MMOL/L (98-107); CHOLESTEROL LEVEL 138 MG/DL (<200); CHOLESTEROL RISK RATIO 2.29 (<5); CREATININE FOR GFR 0.68 MG/DL (0.55-1.30); FREE T4 1.16 NG/DL (0.89-1.76); GLOMERULAR FILTRATION RATE > 90.0 (>60); LDL CHOLESTEROL 62.1 MG/DL (<100); NON-HDL-C 77.9 MG/DL; POTASSIUM SERUM 3.8 MMOL/L (3.5-5.1); SODIUM LEVEL 139 MMOL/L (136-145); TRIGLYCERIDES LEVEL 79 MG/DL (<150)
[2025-07-09 14:21] LABS: ESTIMATED AVERAGE GLUCOSE 91.0 MG/DL (60-110)
== END ==
LOC: M LABDRAWC 12:47
PROVIDERS: ATTEND Physician Assistant Medical
DX: E78.5 Hyperlipidemia, unspecified (principal); Z87.898 Personal history of other specified conditions; R63.5 Abnormal weight gain; Z82.49 Family history of ischemic heart disease and other diseases of the circulatory system